=== PATIENT | male | born 1940 | race Caucasian/White ===

== ENCOUNTER 2018-01-25 02:47 | Emergency (ER) | payer MEDICARE, BC, OTHER ==
[~2018-01-25] VITALS: Ht 175.3 cm; Wt 102.5 kg
[2018-01-25] MEDS ORDERED: DULO30 PO (06:06)
[2018-01-25] MEDS ORDERED: ASPI325EC PO (06:06)
[2018-01-25] MEDS ORDERED: FINA5 PO (06:07)
[2018-01-25] MEDS ORDERED: Flovent Diskus50 MCG IH (06:08)
[2018-01-25] MEDS ORDERED: HYDCHL12.5 PO (06:11)
[2018-01-25] MEDS ORDERED: HYDHCL25 PO (06:12)
[2018-01-25] MEDS ORDERED: Omeprazole20 M1 (06:15)
[2018-01-25] MEDS ORDERED: TAMS.4ER PO (06:15)
[2018-01-25] MEDS ORDERED: LISI20 PO (06:15)
[2018-01-25] MEDS ORDERED: Percocet 5-3251 EACH PO (06:57)
== END 2018-01-25 09:09 | disposition home or self-care (01) ==
LOC: ER 02:47
DX: S82.044A Nondisplaced comminuted fracture of right patella, initial encounter for closed fracture (principal); Z88.5 Allergy status to narcotic agent; Z79.899 Other long term (current) drug therapy; Z79.82 Long term (current) use of aspirin; W10.9XXA Fall (on) (from) unspecified stairs and steps, initial encounter
CPT/HCPCS: 29505; 73502; 73562-RT; 73700; 96372; 99284-25; J1885

== ENCOUNTER 2019-04-18 16:17 | Emergency (ER) | payer OTHER, BC, MEDICARE ==
[~2019-04-18] VITALS: Ht 177.8 cm; Wt 95.2 kg
[~2019-04-18 16:17] MED LIST: ASPI325EC PO; ATOR40TA PO; DULO30 PO; DULO60 PO; FINA5 PO; Flovent Diskus50 MCG IH; Fruity C250 MG PO; HYDCHL12.5 PO; HYDCHL25 PO; HYDHCL25 PO; Motion Sickness25 M1 PO; Omeprazole20 M1; POTA10T PO; Percocet 5-3251 EACH PO; Prinivil10 MG PO; TAMS.4ER PO; Vitamin K100 MCG PO
[2019-04-18 18:30] LABS: Source, Urine Catheter
[2019-04-18 18:38] LABS: Appearance, Urine Clear (Clear); Bilirubin, Urine Neg (Neg); Blood, Urine 3+ (Neg); Color, Urine Yellow (P-Yellow); Glucose Qualitative, Urine Neg (Neg); Ketones, Urine Neg (Neg); Leukocyte Esterase, Urine Neg (Neg); Nitrite, Urine Neg (Neg); Protein, Urine 1+ (Neg); Urobilinogen, Urine NORM (Normal)
[2019-04-18 18:44] LABS: Bacteria Few /hpf; Squamous Epithelial Cells Not Seen /hpf (Few); White Blood Cells, Urine 0-2 /hpf (0-5)
[2019-04-18 18:55] LABS: Calcium, Ionized (POC) 1.21 mmol/L (1.10-1.46); Chloride (POC) 102 mmol/L (98-108); Creatinine (POC) 0.9 mg/dL (0.8-1.3); Glucose (ISTAT POC) 126 mg/dL (70-99); Hemoglobin (POC) 15.3 g/dL (13.5-17.5); Potassium (POC) 3.1 mmol/L (3.5-5.5); Sodium (POC) 142 mmol/L (135-148); Total CO2 (POC) 28 mmol/L (21-32)
[2019-04-18] MEDS ORDERED: CEPH500 PO (19:21)
== END 2019-04-18 19:52 | disposition home or self-care (01) ==
LOC: ER 16:17
PROVIDERS: Emergency Medicine
DX: N39.0 Urinary tract infection, site not specified (principal); R41.0 Disorientation, unspecified; E87.6 Hypokalemia; G47.33 Obstructive sleep apnea (adult) (pediatric); Z86.73 Personal history of transient ischemic attack (TIA), and cerebral infarction without residual deficits; Z87.891 Personal history of nicotine dependence; Z88.5 Allergy status to narcotic agent; Z79.899 Other long term (current) drug therapy
CPT/HCPCS: 36415; 51701; 80047; 81001; 85014; 99284; A9270-GY

== ENCOUNTER 2019-04-20 08:17 | Emergency (ER) | payer OTHER, BC, MEDICARE ==
[~2019-04-20] VITALS: Ht 180.3 cm; Wt 103.9 kg
[~2019-04-20 08:17] MED LIST changes: +CEPH500 PO
[2019-04-20] MEDS ORDERED: VITAMIN D350 MCG PO (08:30)
[2019-04-20] MEDS ORDERED: CENTRUM SILVER1 EAC2 PO (08:30)
[2019-04-20] MEDS ORDERED: Aspir 8181 MG PO (08:31)
[2019-04-20] MEDS ORDERED: [UNRECOGNIZED DRUG - OTHER] PO (08:33)
== END 2019-04-20 10:20 | disposition home or self-care (01) ==
LOC: ER 08:17
DX: S00.03XA Contusion of scalp, initial encounter (principal); Z86.73 Personal history of transient ischemic attack (TIA), and cerebral infarction without residual deficits; Z87.891 Personal history of nicotine dependence; Z88.5 Allergy status to narcotic agent; Z79.899 Other long term (current) drug therapy; Z79.82 Long term (current) use of aspirin; W01.10XA Fall on same level from slipping, tripping and stumbling with subsequent striking against unspecified object, initial encounter
CPT/HCPCS: 99283

== ENCOUNTER 2019-04-25 20:52 | Emergency (ER) | payer BC, OTHER, MEDICARE ==
[~2019-04-25] VITALS: Ht 180.3 cm; Wt 103.9 kg
[~2019-04-25 20:52] MED LIST changes: +Aspir 8181 MG PO; +CENTRUM SILVER1 EAC2 PO; +Cymbalta20 MG PO; -DULO60 PO; -HYDCHL25 PO; +LISI20 PO; -Prinivil10 MG PO; +VITAMIN D350 MCG PO; +[UNRECOGNIZED DRUG - OTHER] PO
== END 2019-04-25 23:08 | disposition home or self-care (01) ==
LOC: ER 20:52
DX: S20.211A Contusion of right front wall of thorax, initial encounter (principal); S30.1XXA Contusion of abdominal wall, initial encounter; Z86.73 Personal history of transient ischemic attack (TIA), and cerebral infarction without residual deficits; Z88.5 Allergy status to narcotic agent; Z79.82 Long term (current) use of aspirin; Z79.899 Other long term (current) drug therapy; W18.39XA Other fall on same level, initial encounter
CPT/HCPCS: 71046; 99284-25

== ENCOUNTER 2019-05-05 14:11 | Emergency (ER) | payer OTHER, MEDICARE, BC ==
[~2019-05-05] VITALS: Ht 172.7 cm; Wt 99.8 kg
[~2019-05-05 14:11] MED LIST changes: -Cymbalta20 MG PO; +DULO60 PO; +HYDCHL25 PO; -LISI20 PO; +Prinivil10 MG PO
[2019-05-05 14:49] LABS: BASOPHILS ABSOLUTE AUTO 0.03 K/mm3 (0.00-0.23); BASOPHILS PERCENT AUTO 0 % (0-2); EOSINOPHILS ABSOLUTE AUTO 0.17 K/mm3 (0.00-0.68); EOSINOPHILS PERCENT AUTO 2 % (0-6); Hematocrit 43.9 % (37.0-53.0); Hemoglobin 15.5 g/dL (13.5-17.5); IMMATURE GRAN ABSOLUTE AUTO 0.03 K/mm3 (0.00-0.10); IMMATURE GRAN PERCENT AUTO 0 % (0-1); LYMPHOCYTES ABSOLUTE AUTO 2.16 K/mm3 (0.84-5.20); LYMPHOCYTES PERCENT AUTO 19 % (21-46); MONOCYTES ABSOLUTE AUTO 0.93 K/mm3 (0.16-1.47); MONOCYTES PERCENT AUTO 8 % (4-13); Mean Corpuscular HGB 34.2 pg (26.0-34.0); Mean Corpuscular HGB Conc 35.3 g/dL (31.5-36.5); Mean Corpuscular Volume 97 fL (80-100); Mean Platelet Volume 9.3 fL (9.1-12.4); NEUTROPHILS ABSOLUTE AUTO 7.85 K/mm3 (1.96-9.15); NEUTROPHILS PERCENT AUTO 70 % (41-73); Platelet Count 172 K/mm3 (150-400); RDW Coefficient Variation 12.4 % (11.7-14.2); RDW Standard Deviation 44.2 fL (35.1-46.3); Red Blood Cell Count 4.53 M/mm3 (4.30-5.90); White Blood Cell Count 11.17 K/mm3 (4.00-11.30)
[2019-05-05 14:58] LABS: Anion Gap 4 mmol/L (6-16); Blood Urea Nitrogen 21 mg/dL (8-24); Bun/Creatinine Ratio 25.7 (12.0-20.0); CO2, Blood 28 mmol/L (21-32); Calcium, Blood 8.4 mg/dL (8.5-10.1); Chloride, Blood 108 mmol/L (98-108); Creatinine, Blood 0.82 mg/dL (0.60-1.20); Glomerular Filtration Rate >60 (60-); Glucose, Blood 110 mg/dL (70-99); Potassium, Blood 3.6 mmol/L (3.5-5.5); Sodium, Blood 140 mmol/L (136-145)
[2019-05-05 16:03] LABS: Source, Urine Clean Catch
[2019-05-05 16:19] LABS: Bilirubin, Urine Neg (Neg); Blood, Urine Neg (Neg); Glucose Qualitative, Urine Neg (Neg); Ketones, Urine Neg (Neg); Leukocyte Esterase, Urine Neg (Neg); Nitrite, Urine Neg (Neg); Protein, Urine 1+ (Neg); Specific Gravity, Urine 1.015 (1.003-1.022); Urobilinogen, Urine NORM (Normal)
[2019-05-05 16:37] LABS: Appearance, Urine Clear (Clear); Color, Urine Yellow (P-Yellow)
[2019-05-06] MEDS ORDERED: PROSTATE COMPLETE PO (13:28)
== END 2019-05-05 17:42 | disposition home or self-care (01) ==
LOC: ER 14:11
PROVIDERS: Emergency Medicine
DX: F03.90 Unspecified dementia, unspecified severity, without behavioral disturbance, psychotic disturbance, mood disturbance, and anxiety (principal); R53.1 Weakness; G47.33 Obstructive sleep apnea (adult) (pediatric); Z88.5 Allergy status to narcotic agent; Z79.899 Other long term (current) drug therapy; Z79.82 Long term (current) use of aspirin; Z86.73 Personal history of transient ischemic attack (TIA), and cerebral infarction without residual deficits; Z99.89 Dependence on other enabling machines and devices; Z87.891 Personal history of nicotine dependence
CPT/HCPCS: 70450; 71045; 80048; 85025; 93005; 93010; 96360; 96361; 99285-25; J7030

== ENCOUNTER 2019-05-06 09:48 | Emergency (ER) | payer OTHER, MEDICARE, BC ==
[~2019-05-06] VITALS: Ht 180.3 cm; Wt 103.4 kg
[2019-05-06 10:23] LABS: BASOPHILS ABSOLUTE AUTO 0.04 K/mm3 (0.00-0.23); BASOPHILS PERCENT AUTO 0 % (0-2); EOSINOPHILS ABSOLUTE AUTO 0.18 K/mm3 (0.00-0.68); EOSINOPHILS PERCENT AUTO 2 % (0-6); Hematocrit 47.9 % (37.0-53.0); Hemoglobin 16.7 g/dL (13.5-17.5); IMMATURE GRAN ABSOLUTE AUTO 0.02 K/mm3 (0.00-0.10); IMMATURE GRAN PERCENT AUTO 0 % (0-1); LYMPHOCYTES ABSOLUTE AUTO 2.51 K/mm3 (0.84-5.20); LYMPHOCYTES PERCENT AUTO 27 % (21-46); MONOCYTES ABSOLUTE AUTO 0.57 K/mm3 (0.16-1.47); MONOCYTES PERCENT AUTO 6 % (4-13); Mean Corpuscular HGB 33.8 pg (26.0-34.0); Mean Corpuscular HGB Conc 34.9 g/dL (31.5-36.5); Mean Corpuscular Volume 97 fL (80-100); Mean Platelet Volume 9.2 fL (9.1-12.4); NEUTROPHILS ABSOLUTE AUTO 6.07 K/mm3 (1.96-9.15); NEUTROPHILS PERCENT AUTO 65 % (41-73); Platelet Count 159 K/mm3 (150-400); RDW Coefficient Variation 12.6 % (11.7-14.2); RDW Standard Deviation 45.1 fL (35.1-46.3); Red Blood Cell Count 4.94 M/mm3 (4.30-5.90); White Blood Cell Count 9.39 K/mm3 (4.00-11.30)
[2019-05-06 10:38] LABS: Alanine Aminotransfer (ALT/SGP 34 U/L (12-78); Albumin/Globulin Ratio 0.9 (0.8-1.8); Alk Phos 108 U/L (50-136); Anion Gap 7 mmol/L (6-16); Aspartate Aminotrans (AST/SGOT 25 U/L (12-37); Bilirubin, Total 0.9 mg/dL (0.1-1.0); Blood Urea Nitrogen 17 mg/dL (8-24); Bun/Creatinine Ratio 22.4 (12.0-20.0); CO2, Blood 27 mmol/L (21-32); Calcium, Blood 9.1 mg/dL (8.5-10.1); Chloride, Blood 107 mmol/L (98-108); Creatinine, Blood 0.76 mg/dL (0.60-1.20); Globulin, Blood 4.3 g/dL (2.2-4.0); Glomerular Filtration Rate >60 (60-); Glucose, Blood 108 mg/dL (70-99); Potassium, Blood 3.6 mmol/L (3.5-5.5); Sodium, Blood 141 mmol/L (136-145); Total Protein, Blood 8.3 g/dL (6.4-8.2)
[2019-05-06 13:03] LABS: Source, Urine Clean Catch
[2019-05-06 13:12] LABS: Bilirubin, Urine Neg (Neg); Blood, Urine 1+ (Neg); Glucose Qualitative, Urine Neg (Neg); Ketones, Urine Neg (Neg); Leukocyte Esterase, Urine Neg (Neg); Nitrite, Urine Neg (Neg); Protein, Urine Neg (Neg); Specific Gravity, Urine 1.015 (1.003-1.022); Urobilinogen, Urine NORM (Normal)
[2019-05-06] MEDS ORDERED: PROSTATE COMPLETE PO (13:28)
[2019-05-06 13:30] LABS: Appearance, Urine Clear (Clear); Color, Urine Yellow (P-Yellow)
[2019-05-06 13:31] LABS: Amorphous Light (0-Heavy); Bacteria Few /hpf; Red Blood Cells, Urine 0-2 /hpf (0-2); Squamous Epithelial Cells Rare /hpf (Few); White Blood Cells, Urine 0-2 /hpf (0-5)
== END 2019-05-06 15:20 | disposition home or self-care (01) ==
LOC: ER 09:48
PROVIDERS: Emergency Medicine
DX: S09.90XA Unspecified injury of head, initial encounter (principal); F03.90 Unspecified dementia, unspecified severity, without behavioral disturbance, psychotic disturbance, mood disturbance, and anxiety; S60.812A Abrasion of left wrist, initial encounter; W18.30XA Fall on same level, unspecified, initial encounter; Z79.899 Other long term (current) drug therapy
CPT/HCPCS: 36415; 70450; 71046; 73110; 80053; 81001; 84484; 85025; 93005; 93010; 99285-25

== ENCOUNTER 2019-07-04 22:39 | Emergency (ER) | payer MEDICARE, OTHER, BC ==
[~2019-07-04] VITALS: Ht 177.8 cm; Wt 101.2 kg
[~2019-07-04 22:39] MED LIST changes: -HYDCHL25 PO; +LISI20 PO; +MICROZIDE12.5 M2 PO; +PROSTATE COMPLETE PO; -Prinivil10 MG PO
[2019-07-04 23:16] LABS: BASOPHILS ABSOLUTE AUTO 0.05 K/mm3 (0.00-0.23); BASOPHILS PERCENT AUTO 1 % (0-2); EOSINOPHILS PERCENT AUTO 4 % (0-6); Hematocrit 43.4 % (37.0-53.0); Hemoglobin 14.9 g/dL (13.5-17.5); IMMATURE GRAN ABSOLUTE AUTO 0.02 K/mm3 (0.00-0.10); IMMATURE GRAN PERCENT AUTO 0 % (0-1); LYMPHOCYTES PERCENT AUTO 32 % (21-46); MONOCYTES ABSOLUTE AUTO 0.77 K/mm3 (0.16-1.47); MONOCYTES PERCENT AUTO 9 % (4-13); Mean Corpuscular HGB 34.2 pg (26.0-34.0); Mean Corpuscular HGB Conc 34.3 g/dL (31.5-36.5); Mean Corpuscular Volume 100 fL (80-100); Mean Platelet Volume 9.3 fL (9.1-12.4); NEUTROPHILS ABSOLUTE AUTO 4.49 K/mm3 (1.96-9.15); NEUTROPHILS PERCENT AUTO 54 % (41-73); Platelet Count 144 K/mm3 (150-400); RDW Coefficient Variation 12.2 % (11.7-14.2); RDW Standard Deviation 44.5 fL (35.1-46.3); Red Blood Cell Count 4.36 M/mm3 (4.30-5.90); White Blood Cell Count 8.33 K/mm3 (4.00-11.30)
[2019-07-04 23:37] LABS: Alanine Aminotransfer (ALT/SGP 30 U/L (12-78); Albumin, Blood 3.3 g/dL (3.4-5.0); Albumin/Globulin Ratio 0.9 (0.8-1.8); Alk Phos 99 U/L (50-136); Anion Gap 7 mmol/L (6-16); Aspartate Aminotrans (AST/SGOT 27 U/L (12-37); Bilirubin, Total 0.5 mg/dL (0.1-1.0); Blood Urea Nitrogen 15 mg/dL (8-24); Bun/Creatinine Ratio 18.4 (12.0-20.0); CO2, Blood 24 mmol/L (21-32); Calcium, Blood 8.8 mg/dL (8.5-10.1); Chloride, Blood 108 mmol/L (98-108); Creatinine, Blood 0.82 mg/dL (0.60-1.20); Globulin, Blood 3.7 g/dL (2.2-4.0); Glomerular Filtration Rate >60 (60-); Glucose, Blood 100 mg/dL (70-99); Potassium, Blood 4.2 mmol/L (3.5-5.5); Sodium, Blood 139 mmol/L (136-145); Troponin I <0.015 ng/mL (0.000-0.040)
[2019-07-05 00:37] LABS: International Normalized Ratio 0.99; Prothrombin Time Results 10.6 Sec (9.7-11.5)
[2019-07-06] MEDS ORDERED: OMEP20ER PO (19:17)
[2019-07-06] MEDS ORDERED: MELATONIN 5 MG1 EACH PO (19:20)
[2019-07-08] MEDS ORDERED: ACET325 (13:31)
== END 2019-07-05 00:50 | disposition short-term general hospital (02) ==
LOC: ER 22:39
PROVIDERS: Emergency Medicine
DX: S06.5X9A Traumatic subdural hemorrhage with loss of consciousness of unspecified duration, initial encounter (principal); S01.01XA Laceration without foreign body of scalp, initial encounter; F03.90 Unspecified dementia, unspecified severity, without behavioral disturbance, psychotic disturbance, mood disturbance, and anxiety; Z86.73 Personal history of transient ischemic attack (TIA), and cerebral infarction without residual deficits; Z88.5 Allergy status to narcotic agent; Z79.899 Other long term (current) drug therapy; Z79.82 Long term (current) use of aspirin; W18.30XA Fall on same level, unspecified, initial encounter; Y92.009 Unspecified place in unspecified non-institutional (private) residence as the place of occurrence of the external cause
CPT/HCPCS: 70450; 72125; 80053; 84484; 85025; 85610; 85730; 93005; 93010; 99285-25; L0160

== ENCOUNTER 2019-07-06 19:13 | Inpatient (IN) | payer MEDICARE, BC, OTHER ==
[~2019-07-06] VITALS: Ht 177.8 cm; Wt 97.6 kg
[2019-07-06] MEDS ORDERED: OMEP20ER PO (19:17)
[2019-07-06] MEDS ORDERED: MELATONIN 5 MG1 EACH PO (19:20)
[2019-07-06 20:44] LABS: BASOPHILS ABSOLUTE AUTO 0.04 K/mm3 (0.00-0.23); BASOPHILS PERCENT AUTO 0 % (0-2); EOSINOPHILS ABSOLUTE AUTO 0.12 K/mm3 (0.00-0.68); EOSINOPHILS PERCENT AUTO 1 % (0-6); Hematocrit 47.8 % (37.0-53.0); Hemoglobin 16.4 g/dL (13.5-17.5); IMMATURE GRAN ABSOLUTE AUTO 0.03 K/mm3 (0.00-0.10); IMMATURE GRAN PERCENT AUTO 0 % (0-1); LYMPHOCYTES ABSOLUTE AUTO 1.78 K/mm3 (0.84-5.20); LYMPHOCYTES PERCENT AUTO 15 % (21-46); MONOCYTES ABSOLUTE AUTO 0.82 K/mm3 (0.16-1.47); MONOCYTES PERCENT AUTO 7 % (4-13); Mean Corpuscular HGB 33.7 pg (26.0-34.0); Mean Corpuscular HGB Conc 34.3 g/dL (31.5-36.5); Mean Corpuscular Volume 98 fL (80-100); Mean Platelet Volume 9.3 fL (9.1-12.4); NEUTROPHILS ABSOLUTE AUTO 8.85 K/mm3 (1.96-9.15); NEUTROPHILS PERCENT AUTO 76 % (41-73); Platelet Count 166 K/mm3 (150-400); RDW Coefficient Variation 12.2 % (11.7-14.2); RDW Standard Deviation 44.7 fL (35.1-46.3); Red Blood Cell Count 4.86 M/mm3 (4.30-5.90); White Blood Cell Count 11.64 K/mm3 (4.00-11.30)
[2019-07-06 21:02] LABS: International Normalized Ratio 1.02; Prothrombin Time Results 10.9 Sec (9.7-11.5)
[2019-07-06 21:03] LABS: Alanine Aminotransfer (ALT/SGP 37 U/L (12-78); Albumin, Blood 3.9 g/dL (3.4-5.0); Albumin/Globulin Ratio 0.9 (0.8-1.8); Alk Phos 121 U/L (50-136); Anion Gap 7 mmol/L (6-16); Aspartate Aminotrans (AST/SGOT 23 U/L (12-37); Bilirubin, Total 0.7 mg/dL (0.1-1.0); Blood Urea Nitrogen 16 mg/dL (8-24); Bun/Creatinine Ratio 18.9 (12.0-20.0); CO2, Blood 28 mmol/L (21-32); Calcium, Blood 9.1 mg/dL (8.5-10.1); Chloride, Blood 104 mmol/L (98-108); Creatinine, Blood 0.85 mg/dL (0.60-1.20); Ethanol (Alcohol), Blood, Med <3 mg/dL; Globulin, Blood 4.3 g/dL (2.2-4.0); Glomerular Filtration Rate >60 (60-); Glucose, Blood 112 mg/dL (70-99); Potassium, Blood 3.8 mmol/L (3.5-5.5); Sodium, Blood 139 mmol/L (136-145); Total Protein, Blood 8.2 g/dL (6.4-8.2)
[2019-07-06 21:57] LABS: Source, Urine Clean Catch
[2019-07-06 22:01] LABS: Appearance, Urine Hazy (Clear); Bilirubin, Urine Neg (Neg); Blood, Urine 3+ (Neg); Color, Urine Yellow (P-Yellow); Glucose Qualitative, Urine Neg (Neg); Ketones, Urine Neg (Neg); Leukocyte Esterase, Urine Neg (Neg); Nitrite, Urine Neg (Neg); Protein, Urine 2+ (Neg); Specific Gravity, Urine 1.015 (1.003-1.022); Urobilinogen, Urine NORM (Normal)
[2019-07-06 22:13] LABS: U Amphetamine Screen Not Detected; U Barbituate Screen Not Detected; U Benzodiazapine Screen Not Detected; U Buprenorphine Screen Not Detected; U Cannabinoids Screen DETECTED; U Cocaine Screen Not Detected; U Methadone Screen Not Detected; U Methamphetamine Screen Not Detected; U Opiates Screen Not Detected; U Oxycodone Screen Not Detected; U Propoxyphene Screen Not Detected
[2019-07-06 22:17] LABS: White Blood Cells, Urine 0-2 /hpf (0-5)
[2019-07-06 22:18] LABS: Squamous Epithelial Cells Rare /hpf (Few)
[2019-07-06 22:19] LABS: Amorphous Light (0-Heavy); Bacteria Few /hpf
--- NOTE | 2019-07-07 02:22 | NUR ---
PT ADMITTED FROM ED AT APPROX 0030 FOR C/O DIZZINESS, BLURRED VISION AND CONFUSION AFTER RECENT SUBDURAL HEMORRHAGE WHICH WAS TREATED AT [facility]. PT WITH ALTERED MENTATION AT THIS TIME. BP ELEVATED AND PT C/O HEADACHE. ALL OTHER VS WNL. SLIGHT LEFT SIDED FACIAL DROOP. PT COOPERATIVE WITH CARE AND TELLING JOKES TO STAFF. NONSENSICAL AT TIMES. INCONTINENT WITH ATTENDS ON. UPON REPORT, PT LIVES AT HOME WITH AND IS AMBULATORY AT BASELINE. BED ALARM ON FOR SAFETY. WILL GIVE ORAL HYDRALAZINE PER ORDERS.
--- NOTE | 2019-07-07 06:00 | NUR ---
PT HAS BEEN HYPERTENSIVE THROUGHOUT SHIFT AND CONTINUES TO C/O HEADACHE. PT GIVEN 10MG PO HYDRALAZINE AND 10MG IV HYDRALAZINE WHICH WAS NOT EFFECTIVE. HOSPITALIST NOTIFIED AND NEW ORDER FOR STAT CT SCAN, IV LEBETALOL AND TELEMETRY. PT ALSO FREQUENTLY ATTEMPTING TO GET OUT OF BED AND IS UNSTEADY ON FEET WITH HX OF MULTIPLE FALLS. HOSPITALIST IS OK WITH HAVING RESTRAINTS PUT ON IF NEEDED.
--- NOTE | 2019-07-07 06:12 | NUR ---
PT GOING IN FOR CT SCAN OF HEAD
--- NOTE | 2019-07-07 07:18 | NUR ---
AFTER IV LEBETALOL, PT BP IS NOW 141/80. PT STILL HOLLERING OUT AND IS BECOMING IRRITABLE WITH STAFF. BED ALARM ON.
--- NOTE | 2019-07-07 07:30 | NUR ---
pt calling out confused removed his attends pt reporting severe h/a and blurred vision turned off lights pt given iv blood pressure meds blood pressure is improved
[2019-07-07 08:29] LABS: BASOPHILS ABSOLUTE AUTO 0.02 K/mm3 (0.00-0.23); BASOPHILS PERCENT AUTO 0 % (0-2); EOSINOPHILS ABSOLUTE AUTO 0.04 K/mm3 (0.00-0.68); EOSINOPHILS PERCENT AUTO 0 % (0-6); Hematocrit 45.4 % (37.0-53.0); IMMATURE GRAN ABSOLUTE AUTO 0.03 K/mm3 (0.00-0.10); IMMATURE GRAN PERCENT AUTO 0 % (0-1); LYMPHOCYTES ABSOLUTE AUTO 1.46 K/mm3 (0.84-5.20); LYMPHOCYTES PERCENT AUTO 12 % (21-46); MONOCYTES ABSOLUTE AUTO 0.87 K/mm3 (0.16-1.47); MONOCYTES PERCENT AUTO 7 % (4-13); Mean Corpuscular HGB 33.9 pg (26.0-34.0); Mean Corpuscular HGB Conc 35.2 g/dL (31.5-36.5); Mean Corpuscular Volume 96 fL (80-100); Mean Platelet Volume 9.2 fL (9.1-12.4); NEUTROPHILS ABSOLUTE AUTO 9.38 K/mm3 (1.96-9.15); NEUTROPHILS PERCENT AUTO 79 % (41-73); Platelet Count 163 K/mm3 (150-400); RDW Coefficient Variation 11.9 % (11.7-14.2); Red Blood Cell Count 4.72 M/mm3 (4.30-5.90)
--- NOTE | 2019-07-07 08:30 | NUR ---
pt stated he had some nausea will hold breakfast
[2019-07-07 08:48] LABS: Anion Gap 4 mmol/L (6-16); Blood Urea Nitrogen 15 mg/dL (8-24); Bun/Creatinine Ratio 24.8 (12.0-20.0); CO2, Blood 27 mmol/L (21-32); Calcium, Blood 8.8 mg/dL (8.5-10.1); Chloride, Blood 105 mmol/L (98-108); Creatinine, Blood 0.61 mg/dL (0.60-1.20); Glomerular Filtration Rate >60 (60-); Glucose, Blood 126 mg/dL (70-99); Potassium, Blood 3.2 mmol/L (3.5-5.5); Sodium, Blood 136 mmol/L (136-145)
--- NOTE | 2019-07-07 08:57 | NUR ---
pt had med emesis zofran given pt stated throwing up did help a little for his nausea pt had nausea earlier held the tray this am and his po meds cleaned pt up changed linen and gave a bath will notify dr sky pt's b/p is improved but still has severe h/a and blurred vision keeping off the lights and the hob at 30 degree
--- NOTE | 2019-07-07 10:25 | NUR ---
dr sky called pt's at bedside discussed pt's symptoms and what we have done so far dr to come in 20 min
--- NOTE | 2019-07-07 12:28 | NUR ---
placed cpap called rt for cont biox
--- NOTE | 2019-07-07 13:18 | NUR ---
DR TAYLOR CALLED UNABLE TO GIVE PT ANY WATER STILL HAVING NAUSEA PT REF PO MEDS REPORT CALLED TO MED PT TO GO TO [facility]ALL R[facility]K
--- NOTE | 2019-07-07 13:28 | NUR ---
PT TRANSFERING TO ROOM 347 NOTIFIED PT'S
--- NOTE | 2019-07-07 13:45 | NUR ---
PATIENT TRANSFERRED FROM 226 TO ROOM 347. PATIENT IS SLEEPING AT THIS TIME WITH CPAP ON. REPORT RECEIVED THAT PATIENT HAS HAD INTERMITTENT NAUSEA AND IS UNABLE TO TOLERATE FOOD OR PO MEDS. VSS TODAY. ORDERS TO START NS AT 100ML/HR. WILL ASSESS FURTHER WHEN PATIENT WAKES.
--- NOTE | 2019-07-07 23:43 | NUR ---
Called TOOL GRINDING MACHINE OPERATOR Kelsie to report run of vtac and she rx potassium and bedtime baseline dose melatonin. also reglan and changed zofran to Q 4hrs prn versus Q 6 hrs. PT is very irritated and he had recent subdural hematoma , slight lt facial droop. hx of old CVA. PT speaks in full sentances alert to self situation. verbally abusive at times. Haldol 2 mg IV was given at beggining of shift for aggitation. Hypertensive verified parameters for use of apresoline will administer. PT has removed tele moniter leads multiple times and refusing pulse bioxx. Will administer melatonin to promote rest.
--- NOTE | 2019-07-08 01:57 | NUR ---
pt HAS PACEMAKER AND APACED AT 80 LAST TELE REPORT. PT TOOK ORAL POTASSIUM 40 MEQ AND HAD REGLAN FOR NAUSEA. MELATONIN GIVEN AND PT RESTING QUIETY WITH CPAP RUNNING. BP IMPROVED WITH 20 MG IV APRESOLINE 126/75 PULSE 80.
--- NOTE | 2019-07-08 02:41 | NUR ---
PT had been sleeping soundly with own cpap inplace over nose. RN sitting outside PT's room and heard him vomit, appeared to be aspirating emisis. Removed cpap suction oral and raised head of bed more and gave IV zofran. Lungs were clear prior to emisis now rhonchi present, continues on bioxx with nasal cpap in place with sats 95% room air cpap. will notify MD and continue to monitor.
--- NOTE | 2019-07-08 03:17 | NUR ---
CPAP nasal removed room air sat 95% and pt maintains oral suction nearby after another emisis where PT coughed out several large talley mucus plug appearing sputum. Called DR Burnett about observed emisis appearing to aspirate. Stat Portable and abd XRay order obtained. PT had large soft brown BM on bedpan with assist. Await CXR
[2019-07-08 05:21] LABS: BASOPHILS ABSOLUTE AUTO 0.02 K/mm3 (0.00-0.23); BASOPHILS PERCENT AUTO 0 % (0-2); EOSINOPHILS ABSOLUTE AUTO 0.02 K/mm3 (0.00-0.68); EOSINOPHILS PERCENT AUTO 0 % (0-6); Hematocrit 47.2 % (37.0-53.0); Hemoglobin 16.2 g/dL (13.5-17.5); IMMATURE GRAN ABSOLUTE AUTO 0.05 K/mm3 (0.00-0.10); IMMATURE GRAN PERCENT AUTO 0 % (0-1); LYMPHOCYTES ABSOLUTE AUTO 0.84 K/mm3 (0.84-5.20); LYMPHOCYTES PERCENT AUTO 6 % (21-46); MONOCYTES ABSOLUTE AUTO 1.02 K/mm3 (0.16-1.47); MONOCYTES PERCENT AUTO 8 % (4-13); Mean Corpuscular HGB 33.9 pg (26.0-34.0); Mean Corpuscular HGB Conc 34.3 g/dL (31.5-36.5); Mean Platelet Volume 9.3 fL (9.1-12.4); NEUTROPHILS ABSOLUTE AUTO 11.35 K/mm3 (1.96-9.15); NEUTROPHILS PERCENT AUTO 85 % (41-73); Platelet Count 170 K/mm3 (150-400); RDW Coefficient Variation 12.4 % (11.7-14.2); RDW Standard Deviation 45.1 fL (35.1-46.3); Red Blood Cell Count 4.78 M/mm3 (4.30-5.90)
[2019-07-08 05:26] LABS: Mean Corpuscular Volume 99 fL (80-100)
[2019-07-08 05:46] LABS: Albumin, Blood 3.6 g/dL (3.4-5.0); Albumin/Globulin Ratio 0.9 (0.8-1.8); Bilirubin, Total 1.1 mg/dL (0.1-1.0); Calcium, Blood 8.4 mg/dL (8.5-10.1); Creatinine, Blood 1.28 mg/dL (0.60-1.20); Globulin, Blood 3.9 g/dL (2.2-4.0); Potassium, Blood 4.1 mmol/L (3.5-5.5); Total Protein, Blood 7.5 g/dL (6.4-8.2)
[2019-07-08 06:17] LABS: Thyroid Stimulating Hormone 1.08 uIU/mL (0.360-4.800)
--- NOTE | 2019-07-08 06:28 | NUR ---
PT continues on room air bioxx and had portable chast x ray and abd xray and head ct this AM. Less aggitated no oral intake since emisis, not currently using nasal cpap due to nausea and vomiting. PT has head ct after subdural hematoma and it was diminishing per imaging. PAced cardiac rhythem or sinus with no further vtac. ON remote camera monitoring due to high fall risk. PT alternates between deep sleep and irritation. Able to communicate but does not use call hanks. When he is awake he usually expresses dissatisfaction with staff calling them incompetent. No visitors present this shift. PT has CHENG and 2 l NC applied this AM due to pauses in breathing. Unable to use CPAP nasal due to N & V.
[2019-07-08] MEDS ORDERED: ACET325 PO (13:31)
[2019-07-08] MEDS ORDERED: VITAMIN D350 MCG PO (13:33)
[2019-07-08] MEDS ORDERED: CYAN500 PO (13:35)
[2019-07-08] MEDS ORDERED: Clotrimazole15 GM TOP (13:35)
[2019-07-08] MEDS ORDERED: ARTIFICIAL TEA1 EACH BOTHEYES (13:37)
[2019-07-08] MEDS ORDERED: DOCU100 PO (13:37)
[2019-07-08] MEDS ORDERED: Flonase 0.05% N16 GM (13:39)
[2019-07-08] MEDS ORDERED: CORTISONE60 GM TOP (13:42)
[2019-07-08] MEDS ORDERED: MAGNESIUM OXID500 MG PO (13:45)
[2019-07-08] MEDS ORDERED: VITAMIN K-1500 MCG PO (13:48)
[2019-07-08] MEDS ORDERED: Saw Palmetto160 MG PO (13:49)
--- NOTE | 2019-07-08 14:12 | NUR ---
Pt. is in bed and is doing much better offerwd prayeres
[2019-07-08] MEDS ORDERED: PHENY100ER PO (16:49)
--- NOTE | 2019-07-08 18:45 | NUR ---
PATIENT MORE ORIENTED TODAY AND ABLE TO FOLLOW COMMANDS. PATIENT CONTINUES WITH INTERMIITENT NAUSEA, BUT NO EMESIS THIS SHIFT. PATIENT ASPIRATED ON HIS VOMIT LAST NIGHT AND WBC'S AND TEMP ELEVATED THIS AM. PATIENT STARTED ON ZOSYN TO TREAT. 2LO2 VIA NC TO MAINTAIN SATS, CONT PULSE OX AT BEDSIDE. VSS, HYDRALAZINE PRN FOR HTN. PATIENT REPORTS L KNEE PAIN, CONTROLLED WITH INTERMITTENT ICE PACKS. FALL PRECAUTIONS IN PLACE PER UNIT PROTOCOL. PATIENT UP WITH FWW, GB AND 2 ASSIST.
--- NOTE | 2019-07-08 19:37 | NUR ---
PT PREVIOUSLY REFUSED SCD'S WHEN CONFUSED AND AGITATED. OFFERED THEM AGAIN AND HE SAID HE WAS OKAY WITH WEARING THEM. APPLIED SCD'S.
--- NOTE | 2019-07-08 19:49 | NUR ---
1914 REPORT RECEIVED FROM RAYRAY SILVA; RESTING COMFORTABLY IN BED; CHEERFUL.
--- NOTE | 2019-07-09 04:08 | NUR ---
SHIFT SUMMARY: 79 Y/O MALE HAD RESTLESS SHIFT AT TIMES WITH PATIENT GIVEN MELATONIN 10MG PO AND REDIRECTED BY NURSING STAFF NUMEROUS TIMES; ALERT AND ORIENTED X 2, VOIDED VIA URINAL HELD IN PLACE BY STAFF (ATTENDS DRY); TELEMETRY REFLECTS NSR WITH BBB PER CHANDRA MYERS--HYDROGEN POWER PLANT ENGINEER; PT TOOK ALL PILLS WHOLE IN APPLESAUCE; BED ALARM APPLIED, BED LOW POSITION WITH CALL LIGHT AT SIDE.
[2019-07-09 05:13] LABS: Hematocrit 40.1 % (37.0-53.0); Hemoglobin 13.5 g/dL (13.5-17.5); Mean Corpuscular HGB 33.7 pg (26.0-34.0); Mean Corpuscular HGB Conc 33.7 g/dL (31.5-36.5); Mean Corpuscular Volume 100 fL (80-100); Mean Platelet Volume 9.3 fL (9.1-12.4); Platelet Count 129 K/mm3 (150-400); RDW Coefficient Variation 12.3 % (11.7-14.2); RDW Standard Deviation 45.4 fL (35.1-46.3); Red Blood Cell Count 4.01 M/mm3 (4.30-5.90)
[2019-07-09 05:33] LABS: Anion Gap 6 mmol/L (6-16); Blood Urea Nitrogen 29 mg/dL (8-24); Bun/Creatinine Ratio 29.9 (12.0-20.0); CO2, Blood 23 mmol/L (21-32); Calcium, Blood 8.2 mg/dL (8.5-10.1); Chloride, Blood 111 mmol/L (98-108); Creatinine, Blood 0.97 mg/dL (0.60-1.20); Glomerular Filtration Rate >60 (60-); Glucose, Blood 101 mg/dL (70-99); Potassium, Blood 3.5 mmol/L (3.5-5.5); Sodium, Blood 140 mmol/L (136-145)
[2019-07-09] MEDS ORDERED: AMOCLA500 PO (16:49)
[2019-07-09] MEDS ORDERED: Vsl#3 Capsule1 EACH PO (16:49)
--- NOTE | 2019-07-09 18:37 | NUR ---
DISCHARGE NOTE- PT WAS GIVEN VERBAL AND WRITTEN DISCHARGE INSTRUCTIONS, SPOUSE WAS PRESENT AND ASKING APPROPRIATE QUESTIONS. SPOUSE STATED THE [facility]. PT SPOUSE REQUESTED THAT THE PT DILANTIN BE CALLED IN TO [facility] JUST FOR 2 DOSES TO GET HER [facility]IL [facility]. THIS WAS DONE PER HER REQUEST OK WITH DR EDMONDSON. PT NORMALLY TAKES OMEPROAZOLE HOWEVER DR EDMONDSON TOLD SPOUSE TO HOLD OFF UNTIL THE PT HAS COMPLETED THE 6 DAYS OF DILANTIN. PT SPOUSE HAD NO FURTHER QUESTIONS AT THE TIME OF DISCHARGE. IV AND TELE DC'D AT THE TIME OF DISCHARGE.
== END 2019-07-09 18:10 | disposition home health service (06) | DRG 82 ==
LOC: ER 19:13 → SURS 07-07 00:02 → MEDS 07-07 13:41
PROVIDERS: Emergency Medicine; Internal Medicine; ADMIT Internal Medicine
DX: S06.5X9A Traumatic subdural hemorrhage with loss of consciousness of unspecified duration, initial encounter (principal); A41.9 Sepsis, unspecified organism; G93.41 Metabolic encephalopathy; J69.0 Pneumonitis due to inhalation of food and vomit; F12.10 Cannabis abuse, uncomplicated; E86.0 Dehydration; F03.90 Unspecified dementia, unspecified severity, without behavioral disturbance, psychotic disturbance, mood disturbance, and anxiety; I10 Essential (primary) hypertension; G47.33 Obstructive sleep apnea (adult) (pediatric); W19.XXXA Unspecified fall, initial encounter; Z86.73 Personal history of transient ischemic attack (TIA), and cerebral infarction without residual deficits; Z95.0 Presence of cardiac pacemaker; Z87.891 Personal history of nicotine dependence; N40.0 Benign prostatic hyperplasia without lower urinary tract symptoms; G25.81 Restless legs syndrome; R13.10 Dysphagia, unspecified
CPT/HCPCS: 36415; 51701; 70450; 71045; 74018; 80048; 80053; 81001; 82607; 82746; 82947; 84443; 85025; 85027; 85610; 85730; 87040; 92610; 93005; 93010; 94762; 96361; 96365; 96367; 96375; 96376; 97116; 97162; 99285-25; A9270-GY; G0378; G0480; J0360; J1165; J1630; J2405; J2543; J2765; J7030

== ENCOUNTER 2019-07-10 15:36 | Observation (INO) | payer MEDICARE, BC, OTHER ==
[~2019-07-10] VITALS: Ht 180.3 cm; Wt 95.8 kg
[~2019-07-10 15:36] MED LIST changes: +ACET325 PO; +AMOCLA500 PO; +ARTIFICIAL TEA1 EACH BOTHEYES; +CORTISONE60 GM TOP; +CYAN500 PO; +Clotrimazole15 GM TOP; +DOCU100 PO; +Flonase 0.05% N16 GM; +MAGNESIUM OXID500 MG PO; +MELATONIN 5 MG1 EACH PO; +OMEP20ER PO; +PHENY100ER PO; +Saw Palmetto160 MG PO; +VITAMIN K-1500 MCG PO; +Vsl#3 Capsule1 EACH PO
[2019-07-10 16:33] LABS: BASOPHILS ABSOLUTE AUTO 0.05 K/mm3 (0.00-0.23); BASOPHILS PERCENT AUTO 1 % (0-2); EOSINOPHILS ABSOLUTE AUTO 0.17 K/mm3 (0.00-0.68); EOSINOPHILS PERCENT AUTO 2 % (0-6); Hematocrit 46.2 % (37.0-53.0); Hemoglobin 16.3 g/dL (13.5-17.5); IMMATURE GRAN ABSOLUTE AUTO 0.02 K/mm3 (0.00-0.10); IMMATURE GRAN PERCENT AUTO 0 % (0-1); LYMPHOCYTES ABSOLUTE AUTO 1.92 K/mm3 (0.84-5.20); LYMPHOCYTES PERCENT AUTO 18 % (21-46); MONOCYTES PERCENT AUTO 10 % (4-13); Mean Corpuscular HGB 34.5 pg (26.0-34.0); Mean Corpuscular HGB Conc 35.3 g/dL (31.5-36.5); Mean Corpuscular Volume 98 fL (80-100); Mean Platelet Volume 9.2 fL (9.1-12.4); NEUTROPHILS ABSOLUTE AUTO 7.29 K/mm3 (1.96-9.15); NEUTROPHILS PERCENT AUTO 70 % (41-73); Platelet Count 133 K/mm3 (150-400); RDW Coefficient Variation 11.9 % (11.7-14.2); RDW Standard Deviation 43.2 fL (35.1-46.3); Red Blood Cell Count 4.72 M/mm3 (4.30-5.90); White Blood Cell Count 10.45 K/mm3 (4.00-11.30)
[2019-07-10 16:48] LABS: International Normalized Ratio 1.04; Prothrombin Time Results 11.1 Sec (9.7-11.5)
[2019-07-10 16:54] LABS: Alanine Aminotransfer (ALT/SGP 31 U/L (12-78); Albumin, Blood 3.5 g/dL (3.4-5.0); Albumin/Globulin Ratio 0.8 (0.8-1.8); Alk Phos 112 U/L (50-136); Anion Gap 6 mmol/L (6-16); Aspartate Aminotrans (AST/SGOT 34 U/L (12-37); Bilirubin, Total 0.9 mg/dL (0.1-1.0); Blood Urea Nitrogen 17 mg/dL (8-24); Bun/Creatinine Ratio 29.5 (12.0-20.0); CO2, Blood 24 mmol/L (21-32); Calcium, Blood 8.7 mg/dL (8.5-10.1); Chloride, Blood 105 mmol/L (98-108); Creatinine, Blood 0.58 mg/dL (0.60-1.20); Globulin, Blood 4.4 g/dL (2.2-4.0); Glomerular Filtration Rate >60 (60-); Glucose, Blood 99 mg/dL (70-99); Sodium, Blood 135 mmol/L (136-145); Total Protein, Blood 7.9 g/dL (6.4-8.2)
[2019-07-10 17:03] LABS: Dilantin (Phenytoin), Total 3.7 ug/mL (10.0-20.0)
[2019-07-11 03:36] LABS: Source, Urine Catheter
[2019-07-11 03:43] LABS: Bilirubin, Urine Neg (Neg); Blood, Urine 2+ (Neg); Glucose Qualitative, Urine Neg (Neg); Ketones, Urine 3+ (Neg); Leukocyte Esterase, Urine Neg (Neg); Nitrite, Urine Neg (Neg); Protein, Urine 2+ (Neg); Urobilinogen, Urine 1+ (Normal)
[2019-07-11 03:45] LABS: Appearance, Urine Clear (Clear); Color, Urine Yellow (P-Yellow)
--- NOTE | 2019-07-11 03:48 | NUR ---
NOC SHIFT SUMMARY RECIEVED REPORT FROM [facility] ED RN AND PT ARRIVED TO FLOOR AT 1935. CAME TO FLOOR WITH HIM AND LEFT SHORTLY AFTER. PT IS ORIENTED TO SELF AND FAMILY. HAS SOME REDNESS ON HIS SCROTUM ON ADMIT. HE HAD BEEN INCONTINENT. BARIER CREAM APPLIED TO AREA TO PREVENT SKIN BREAKDOWN. BROUGHT CPAP MACHINE FROM HOME AND PT IS PRESENTLY USING IT WHILE HE SLEEPS. ON CONT PULSE OX AND SATTING MID 90'S WHILE SLEEPING. HE IS GENERALLY PLEASANT AND COOPERATIVE BUT DOES NOT APPRECIATE BEING CHANGED. HAS THREATENED TO STRIKE STAFF DURING ATTENDS CHANGES. OBTAINED URINE SAMPLE AND SENT TO LAB. THIS TIME PT IS SLEEPING AND APPEARS IN NO ACUTE DISTRESS. WILL CONTINUE TO MONITOR.
[2019-07-11 03:52] LABS: Amorphous Mod (0-Heavy); Bacteria Few /hpf; Red Blood Cells, Urine 0-2 /hpf (0-2); Squamous Epithelial Cells Few /hpf (Few); White Blood Cells, Urine 0-2 /hpf (0-5)
[2019-07-11 05:31] LABS: BASOPHILS ABSOLUTE AUTO 0.05 K/mm3 (0.00-0.23); BASOPHILS PERCENT AUTO 0 % (0-2); EOSINOPHILS PERCENT AUTO 1 % (0-6); Hematocrit 48.3 % (37.0-53.0); Hemoglobin 16.8 g/dL (13.5-17.5); IMMATURE GRAN ABSOLUTE AUTO 0.06 K/mm3 (0.00-0.10); IMMATURE GRAN PERCENT AUTO 1 % (0-1); LYMPHOCYTES ABSOLUTE AUTO 1.47 K/mm3 (0.84-5.20); LYMPHOCYTES PERCENT AUTO 12 % (21-46); MONOCYTES PERCENT AUTO 10 % (4-13); Mean Corpuscular HGB 33.9 pg (26.0-34.0); Mean Corpuscular HGB Conc 34.8 g/dL (31.5-36.5); Mean Corpuscular Volume 98 fL (80-100); Mean Platelet Volume 9.1 fL (9.1-12.4); NEUTROPHILS ABSOLUTE AUTO 9.48 K/mm3 (1.96-9.15); NEUTROPHILS PERCENT AUTO 77 % (41-73); Platelet Count 151 K/mm3 (150-400); RDW Standard Deviation 43.6 fL (35.1-46.3); Red Blood Cell Count 4.95 M/mm3 (4.30-5.90); White Blood Cell Count 12.36 K/mm3 (4.00-11.30)
[2019-07-11 05:54] LABS: Anion Gap 6 mmol/L (6-16); Blood Urea Nitrogen 13 mg/dL (8-24); Bun/Creatinine Ratio 17.3 (12.0-20.0); CO2, Blood 27 mmol/L (21-32); Calcium, Blood 8.9 mg/dL (8.5-10.1); Chloride, Blood 103 mmol/L (98-108); Creatinine, Blood 0.75 mg/dL (0.60-1.20); Glomerular Filtration Rate >60 (60-); Glucose, Blood 98 mg/dL (70-99); Potassium, Blood 3.4 mmol/L (3.5-5.5); Sodium, Blood 136 mmol/L (136-145)
--- NOTE | 2019-07-11 14:53 | NUR ---
DILANTIN, AUGMENTIN, BOWEL CARE: NOTIFIED DR. LOWE OF A NUMBER OF CONCERNS BROUGHT FORTH BY THE PATIENT'S . SHE WAS UNSURE OF THE REASON FOR THE PATIENT RECEIVING DILANTIN (THE NEUROSURGEON AT [facility] RECOMMENDED THIS MEDICATION TO PREVENT SEIZURES POST SUB-DURAL HEMATOMA, PER DR. LOWE), THAT THE PATIENT WAS DISCHARGED ON AUGMENTIN FOR POTENTIAL PNEUMONIA (THE CHEST X-RAY UPON ADMIT DID NOT INDICATE PNEUMONIA, PER DR. LOWE) AND THAT THE PATIENT HAS NOT HAD A BOWEL MOVEMENT SINCE LAST FRIDAY. NEW ORDERS TO FOLLOW.
--- NOTE | 2019-07-11 19:46 | NUR ---
END OF SHIFT SUMMARY: PATIENT REPORTED 10/10 PAIN FOR MOST OF THE SHIFT, PRIMARILY IN THE LEFT SHOULDER AND A HEADACHE. MEDICATED WITH PRN TYLENOL, REPOSITIONED, AND APPLIED HEAT/COLD. PATIENT TOLERATED WELL. BY THE END OF THE SHIFT, PATIENT DENIED NEED FOR PAIN MEDICATION. PATIENT'S REPORTED THAT PATIENT HAS ADVERSE REACTIONS TO ULTRAM. RELAYED TO DR. LOWE. NEW ORDERS RECEIVED TO SCHEDULE THE TYLENOL. PATIENT AND NOTIIFIED. PATIENT'S DID NOT REQUIRE PRN HYDRALAZINE TODAY. TOLERATED MORNING BP MEDICATIONS WELL. PATIENT ENGAGED WITH PHYSICAL THERAPIST. PERFORMED ALL EXERCISES AVAILABLE WITH PT. DISCUSSED REASONS FOR DILANTIN WITH THE PATIENT'S (SEE NURSES NOTE), SHE AGREED FOR THE PATIENT TO HAVE THIS MEDICATION. NO SEIZURE ACTIVITY NOTED. NO CHANGES TO NEURO STATUS THROUGHOUT SHIFT, WITH THE EXCEPTION OF BECOMING INCREASINGLY FATIGUED. PATIENT EASY TO AWAKE, RESPONSES APPROPRIATELY, CONTINUES TO MAKE JOKES/SARCASTIC REMARKS, AND FOLLOW COMMANDS. PATIENT DID NOT DISPLAY ANY DIFFICULTIES EATING OR DRINKING TODAY. REPORTED THAT HE HAD A SWALLOW EVALUATION IN 2018 THAT REQUIRED: MEDICATIONS WHOLE WITH APPLESAUCE, NO MIXED CONSISTENCIES, SOFT BITE/BITE SIZED FOODS, AND NO STRAWS. THESE PARAMETERS WERE FOLLOWED TODAY WITHOUT SIGNS/SYMPTOMS OF DIFFICULTY SWALLOWING. EXPRESSED SOME CONCERNS ABOUT THE PATIENT'S DISCHARGE. DISCUSSED PT RECOMMENDATION FOR THE PATIENT TO DISCHARGE TO A SNF. REPORTED THAT SHE WILL BE IN TOMORROW AND ABLE TO DISCUSS OPTIONS WITH CARE MANAGEMENT.
--- NOTE | 2019-07-11 23:37 | NUR ---
SON AND DAUGHTER IN LAW VISITING DURING SHIFT CHANGE. PT CONTINUES TO COMPLAIN OF L SHOULDER PAIN, WORSE ON PALP. TREATING PER EMAR.
[2019-07-12 05:06] LABS: BASOPHILS ABSOLUTE AUTO 0.02 K/mm3 (0.00-0.23); BASOPHILS PERCENT AUTO 0 % (0-2); EOSINOPHILS ABSOLUTE AUTO 0.04 K/mm3 (0.00-0.68); EOSINOPHILS PERCENT AUTO 0 % (0-6); Hemoglobin 14.6 g/dL (13.5-17.5); IMMATURE GRAN ABSOLUTE AUTO 0.03 K/mm3 (0.00-0.10); IMMATURE GRAN PERCENT AUTO 0 % (0-1); LYMPHOCYTES ABSOLUTE AUTO 1.38 K/mm3 (0.84-5.20); LYMPHOCYTES PERCENT AUTO 13 % (21-46); MONOCYTES ABSOLUTE AUTO 1.25 K/mm3 (0.16-1.47); MONOCYTES PERCENT AUTO 12 % (4-13); Mean Corpuscular HGB Conc 34.8 g/dL (31.5-36.5); Mean Corpuscular Volume 98 fL (80-100); Mean Platelet Volume 9.1 fL (9.1-12.4); NEUTROPHILS ABSOLUTE AUTO 8.03 K/mm3 (1.96-9.15); NEUTROPHILS PERCENT AUTO 75 % (41-73); Platelet Count 126 K/mm3 (150-400); RDW Coefficient Variation 12.1 % (11.7-14.2); RDW Standard Deviation 43.7 fL (35.1-46.3); Red Blood Cell Count 4.29 M/mm3 (4.30-5.90); White Blood Cell Count 10.75 K/mm3 (4.00-11.30)
[2019-07-12 05:21] LABS: Anion Gap 5 mmol/L (6-16); Blood Urea Nitrogen 20 mg/dL (8-24); CO2, Blood 27 mmol/L (21-32); Calcium, Blood 8.5 mg/dL (8.5-10.1); Chloride, Blood 104 mmol/L (98-108); Creatinine, Blood 0.87 mg/dL (0.60-1.20); Glomerular Filtration Rate >60 (60-); Glucose, Blood 116 mg/dL (70-99); Potassium, Blood 3.5 mmol/L (3.5-5.5); Sodium, Blood 136 mmol/L (136-145)
--- NOTE | 2019-07-12 07:32 | NUR ---
NOC SHIFT SUMMARY PT COOPERATIVE WITH CARE. TURNED THROUGH THE NIGHT TO PREVENT SORES. CONTINUED PAIN IN R SHOULDER. VSS. THOUGHT AT TIMES PT MOVES ARM DURING BP CHECK CAUSING IT TO BE HIGH. WHEN RECHECKED IT IS WNL. REPORT TO ONCOMING RN.
--- NOTE | 2019-07-12 19:33 | NUR ---
SHIFT SUMMARY-PT ALERT, PLESANT AND COOPERATIVE. HE HAS SOME INTERMITENT CONFUSION. HE IS HAVING PAIN INT THE LEFT SHOULDER. RADIOGRAPHS TAKEN THIS AFTERNOON. PT WORKED WITH SPEECH THERAPY TAKES HIS MEDICATIONS WHOLE IN APPLESAUCE. UP IN THE CHAIR FOR LUNCH. WORKED WITH PT AND OT, TOLERATED BOTH WELL. PT IS INCONTINENT AND REQUIRED ATTENDS CHANGE SEVERAL TIMES THIS SHIFT. HE IS EATING AND DRINKING WELL.
--- NOTE | 2019-07-12 20:29 | NUR ---
GARTH IS ALERT AND PLEASANT BUT IS VERY FORGETFUL IN HIS CARE AND NEEDS. HE CALLS AND DOES NOT REMEMBER BY THE TIME I GET TO THE ROOM. MEDS ADMINISTERED. GROIN SLIGHTLY RED, ATTENDS DRY. RIGHT SHOULDER PAINFUL WITH MOVMENT. ELEVATED ON PILLOW. LUNG SOUNDS CLEAR BUT DIMINISHED. MILD EDEMA IN LEGS. CALL LIGHT IN REACH, WILL CONTINUE TO MONITOR.
--- NOTE | 2019-07-13 05:28 | NUR ---
SHIFT SUMMARY: GARTH HAD OFF AND ON CONFUSION/FORGETFULNESS TONIGHT. WAS NOT ABLE TO REMEMBER WHAT HE HAD CALLED ABOUT AND OTHER TIMES REPEATING QUESTIONS ALREADY ANSWERED. PAIN HAS BEEN MANAGED WITH TYLENOL EVERY 6 HOURS PER ORDERS. BRING THE PAIN TO 4 WHILE NOT MOVING BUT MOVING THE ARM STILL RAISES THE PAIN. VS HAVE REMAINED WNL. HE USED CPAP ABOUT 30% OF THE NIGHT, HE CONTINUED TO TAKE IT OFF. SATS HAVE REMAINED IN THE 90'S EXCEPT OCCATIONAL DROPS THAT COME RIGHT BACK UP. CALL LIGHT REMAINED IN REACH AND USED APPROPRIATLY.
--- NOTE | 2019-07-13 17:40 | NUR ---
SUMMARY PT RESTING QUIETLY IN BED, WAKES EASILY, PT HAS BEEN PLEASANT AND COOPERATIVE WITH CARE, FORGETFUL AT TIMES, WAS UP WALKING IN THE HALLS TODAY WITH PT/OT, UP IN THE CHAIR SEVERAL TIMES, CT SCAN OF L ARM DONE, SPOUSE HAS BEEN IN TO VISIT, NO COMPLAINTS, VSS, NO ACUTE CHANGES, WILL CONT TO MONITOR
--- NOTE | 2019-07-13 19:30 | NUR ---
GARTH WAS FOUND WITH HIS LEGS HANGING OFF THE SIDE. HE SAID HE WAS NOT SURE WHAT HE WAS DOING. MIRROR SPECIALIST AND I HELPED TO GET HIM BACK TO IN THE BED, AND POSITION HIM CORRECTLY NOT SIDE WAYS. ATTENDS DRY AT THIS TIME. GAVE HIM THE CALL LIGHT AND ENCOURAGED HIM TO USE IT. BED ALARM IS ON. WILL CONTINUE TO MONITOR.
--- NOTE | 2019-07-14 04:54 | NUR ---
BED ALARM SOUNDING, PATIENT FOUND SLIDING OFF THE BED ONTO HIS KNEES I WALKED IN. HE SAID HE HAD TO PEE, FORGOT TO USE THE CALL LIGHT. HE HAD HIS ATTENDS OFF AND WAS URINATING ON THE FLOOR. ASSISTED HIM BACK TO STANDING POSITION AND BACK INTO BED. PLACED NEW ATTENDS ON HIM AND CLEANED UP THE FLOOR. GOT HIM POSITIONED IN BED, ORIENTED HIM AGAIN TO CALLING FOR NEED TO USE THE BATHROOM. INFORMED HIM HE IS NOT ALLOWED TO GET OUT OF BED WITH OUT HELP. 3 RAILS ARE UP. BED ALARM SENSITIVITY CHANGED TO SITTING UP IN BED. CHARGE WAS INFORMED OF SITUATION.
--- NOTE | 2019-07-14 05:53 | NUR ---
SHIFT SUMMARY: GARTH HAS BEEN UP AND DOWN ALL NIGHT. HE HAS SET OFF HIS BED ALARM 4 TIMES THIS SHIFT TRYING TO GET OUT OF BED TO URINATE. WE HAVE TRIED ASKING HIM IF HE NEEDS TO URINATE EVERY TIME WE HAVE BEEN IN THE ROOM. ATTEMPTED TO GIVE HIM URINAL BUT HE JUST SPILLS IT IN THE BED. TRIED TO GET HIM TO USE HIS CALL LIGHT TO CALL USE BUT HE FORGETS. HE DID HAVE A NEAR MISS FALL THIS MORNING, WHERE I FOUND HIM ROLLING OUT OF BED ONTO HIS KNEES JUST THE BED ALARM SOUNDED. HE WAS URINATING ON THE FLOOR. NO INJURIES OCCURRED. VS HAVE REMAINED STABLE. HE JUST CONFUSED ABOUT WHERE HE IS AT AND DOES NOT FOLLOW DIRECTION. HE HAD VERY GOOD OUTPUT THIS SHIFT. NO OTHER ACUTE CHANGES OCCURRED, WILL REPORT TO DAY SHIFT.
--- NOTE | 2019-07-14 06:57 | NUR ---
PT GAVE PERMISSION FOR STUDENT NURSE TO CARE FOR HIM [phone] 07/14/2019
--- NOTE | 2019-07-14 13:12 | NUR ---
Pt. is in bed resting and his therapist in the room attending to his needs. offered prayers.
--- NOTE | 2019-07-14 18:16 | NUR ---
SUMMARY PT SITTING UP IN BED EATING DINNER, PT HAS BEEN UP IN THE CHAIR SEVERAL TIMES, PT WORKED WITH PT/OT, SPOUSE HAS BEEN IN TO VISIT, PT FORGETFUL AT TIMES, DOES NOT CONSISTENTLY USE THE CALL LIGHT, OCC INCONTINENCE, VSS, NO ACUTE CHANGES, WILL CONT TO MONITOR
--- NOTE | 2019-07-14 19:30 | NUR ---
GARTH WAS FOUND WITH LEGS OVER THE BED, YELLING OUT FOR HELP. HE NEEDED TO USE THE BATHROOM. ASSISTED WITH URINAL NEEDS, HAD TO CHANGE ATTENDS WELL. REPOSITIONED HIM WITH CAN TESTER HELP IN BED. TALKED TO HIM AGAIN ABOUT NOT GETTING OUT OF BED WITH OUT CALLING FOR HELP ON THE CALL LIGHT. DISCUSSED RISK FOR FALLS. HE SAID HE WILL TRY AND REMEMBER. BED ALARM IS ON, AND 3 RAILS UP FOR SAFETY. CALL LIGHT IN EACH.
--- NOTE | 2019-07-15 05:21 | NUR ---
SHIFT SUMMARY: GARTH HAD A BETTER NIGHT TONIGHT. AT START OF SHIFT, HE WAS NEEDING TO URINATE OFTEN AND WAS VERY FORGETFUL WITH USING THE CALL LIGHT. APPARENTLY HE DOES BETTER DURING THE DAY AND HAS INCREASE CONFUSION AT NIGHT. HE IS USING HIS ARM MORE OFTEN AND ABLE TO MOVE IT WITH LESS PAIN NOTED. TAKES MEDS WITH APPLESAUCE. HE WAS ABLE TO SLEEP 90% OF THE NIGHT TONIGHT WITH CPAP ON, AWAKING UP JUST A FEW MINUTES AGO. HE HAS USED THE CALL LIGHT MORE TONIGHT THEN PREVIOUS NIGHTS. NO OTHER ACUTE CHANGES HAVE OCCURRED THIS SHIFT.
--- NOTE | 2019-07-15 12:30 | NUR ---
SPOKE TO DR LOWE- PT HAD DILANTIN ORDERED UPON DISCHARGE LAST FRIDAY FOR A SIX DAY REGIMEN PER NEUROLOGY. SPOKE TO ABOUT THIS, PT IS AT SIX DAYS NOW, TO DETERMINE IF THE MED IS STILL GOING TO CONTINUE.
--- NOTE | 2019-07-15 13:09 | NUR ---
Met pt. sitting upm in a chair and talking with in the room on visit offered prayers .
--- NOTE | 2019-07-15 15:47 | NUR ---
Met with patient and and memory care director to review pt needs. pt up in chair some difficulty tracking and hearing conversation. review of symptoms. pt states he feels better first day in [facility] that he has not had a headache. pt expressed stress and some tears at people telling him they understand how he feels. he state his eye site is getting worse, he can still hear ok his mouth is dry and sorness no broken teeth noted very poor dentition. pt denies nausea or discomfort to back or joints. He had a bowel movement but has had very chronic constipation. Review with levels of care, Care manger review with pt needs. Discussed with home needs and safety. they are stuggling with ADL's. pt has bedside commode that is to small. Review in [employer] alternate commode pt could order. Reivewed getting a bath aid and sfety. They are planning amove to [place]. Gave her information on [facility] kaycee and review of memory care environment. Pt ins in dementia support group. Advised her to set up primary care physician with [facility] in [place] before they move.
--- NOTE | 2019-07-15 18:43 | NUR ---
SHIFT SUMMARY- PT ALERT AND ORIENTED TO SELF, FAILY AND SITUATION. DOSE HAVE A Dx OF DEMENTIA AND HAS HAD FREQUENT FALLS AT HOME. PLAN IS FOR PT TO GO HOME TOMORROW WITH HOME HEALTH. PT STRENGTH HAS IMPROVED AND IS NOW A 1PA FOR ALL ACTIVITIES. NO ACUTE CHANGES T/O THE SHIFT.
--- NOTE | 2019-07-16 00:19 | NUR ---
07/15/19 9781 PT C/O ITCHING ON BACK AND UNABLE TO SLEEP. RN HAD APPLIED ANTI-ITCH CREAM TWICE EARLIER. PT STATES HE NEEDS "SOMETHING STRONGER". FOR THE ITCH. RN WILL PAGE ON-CALL MD FOR ANOTHER MED.
--- NOTE | 2019-07-16 07:39 | NUR ---
07/16/19 0610 PT LAYING DIAGONAL IN BED AND CONFUSED TO SURROUNDINGS. RN RE-ORIENTED HIM AND POPCORN VENDOR AND RN GOT HIM UP INTO CHAIR HE WAS INCONTINENT OF URINE ON BED LINENS. PARTIAL BATH GIVEN. CHAIR ALARM ON. CALL VILLAGOMEZ GIVEN AND REMINDED TO CALL FOR HELP UP. PT STATES "OKAY." PT MORE CONFUSED AT NIGHT AND OCC. TOOK OFF CPAP AND CONT. PULSE OX WOULD ALARM.
--- NOTE | 2019-07-16 07:47 | NUR ---
ASSSUMED CARE OF PT- PER REPORT PT MORE IRRITABLE LAST NIGHT THAN PREVIOUS. THIS MORNING HE BECAME ANGRY AND BEGAN USING FOUL LANGUAGE WITH THE MEDIA MARKETING MANAGER WHO PULLED UP HIS SLEVE TO DO HIS VITALS. HE WAS QUICKLY BECOMING ANGRY BECAUSE HIS ARM WAS "BROKEN" AND SHE WAS "NOT BEING CAREFUL." RN SPOKE TO THE PT AND HE EXPRESSED HIS CONCERNSAGAIN USEING FOUL LANGUAGE. RESPECTFULLY ASKED THAT THE PT REFRAIN FOR THE USE OF THIS TYPE OF LANGUAGE STAFF ARE NOT TRYING TO HARM HIM. AFTER A FEW MINUTES OF CONVERSATION THE PT BEGAN TO DEESCALATE AND WAS COOPERATIVE WITH ALL CARE. PT STATED THAT HE BELIEVES THAT THE COMMUNISTS ARE RESPONSIBLE FOR HIS ITCHY BACK.... RANDOMLY AFTER THE CONVERSATION (TOTALLY OFF TOPIC).
[2019-07-16] MEDS ORDERED: Prinivil10 MG PO (11:33)
--- NOTE | 2019-07-16 15:24 | NUR ---
DISCHARGE NOTE- PT DISCHARGED HOME. SPOUSE PRESENT FOR DISCHARGE TEACHING. PT WENT TO THE BATHROOM AND HAD A LARGE BM WITH MINIMAL ASSISTANCE WITH AMBULATION FOR SAFETY. PT SPOUSE MANAGES HIS CARE AND WAS GIVEN VERBAL AND WRITTEN DISCHARGE INSTRUCTIONS AND ACKNOWLEDGED UNDESTANDING OF THEM. NO FURTHER QUESTIONS AT THE TIME OF DISCHARGE. PT DECLINED TYLENOL AND EYE DROPS AT 1300 SPOUSE PRESENT AND STATED THE PT CAN TAKE THEM WHEN HE GETS HOME. IV DC'D PRIOR TO DISCHARGE.
== END 2019-07-16 15:07 | disposition home health service (06) ==
LOC: ER 15:36 → MEDS 15:37 → ENPENDDIS 07-16 09:57 → MEDS 07-16 15:07
PROVIDERS: Emergency Medicine; Nurse Practitioner Acute Care; ADMIT Internal Medicine
DX: R53.1 Weakness (principal); J69.0 Pneumonitis due to inhalation of food and vomit; I67.2 Cerebral atherosclerosis; F03.90 Unspecified dementia, unspecified severity, without behavioral disturbance, psychotic disturbance, mood disturbance, and anxiety; I10 Essential (primary) hypertension; G47.33 Obstructive sleep apnea (adult) (pediatric); M19.012 Primary osteoarthritis, left shoulder; M19.011 Primary osteoarthritis, right shoulder; G92 Toxic encephalopathy; A41.9 Sepsis, unspecified organism; E66.9 Obesity, unspecified; S06.5X9D Traumatic subdural hemorrhage with loss of consciousness of unspecified duration, subsequent encounter; Z88.5 Allergy status to narcotic agent; Z99.89 Dependence on other enabling machines and devices; Z79.82 Long term (current) use of aspirin; Z79.899 Other long term (current) drug therapy; Z87.891 Personal history of nicotine dependence; Z68.31 Body mass index [BMI] 31.0-31.9, adult
CPT/HCPCS: 36415; 70450; 71046; 73020; 73200; 73560-LT; 80048; 80053; 80185; 81001; 84145; 85025; 85610; 92610; 93005; 93010; 94762; 96374; 96375; 97110; 97112; 97116; 97162; 97166; 97530; 97535; 99285-25; A9270; A9270-GY; G0378; J0360; J2405; Q0163

== ENCOUNTER 2019-10-25 08:52 | Emergency (ER) | payer OTHER, MEDICARE, BC ==
[~2019-10-25] VITALS: Ht 175.3 cm; Wt 105.7 kg
[~2019-10-25 08:52] MED LIST changes: +MELATONIN5 M1 PO; -MICROZIDE12.5 M2 PO; +Prinivil10 MG PO
[2019-10-25] MEDS ORDERED: ASPI81CH PO (09:48)
[2019-10-25 09:59] LABS: BASOPHILS ABSOLUTE AUTO 0.02 K/mm3 (0.00-0.23); BASOPHILS PERCENT AUTO 0 % (0-2); EOSINOPHILS ABSOLUTE AUTO 0.15 K/mm3 (0.00-0.68); EOSINOPHILS PERCENT AUTO 2 % (0-6); Hematocrit 42.1 % (37.0-53.0); Hemoglobin 14.1 g/dL (13.5-17.5); IMMATURE GRAN ABSOLUTE AUTO 0.02 K/mm3 (0.00-0.10); IMMATURE GRAN PERCENT AUTO 0 % (0-1); LYMPHOCYTES ABSOLUTE AUTO 3.08 K/mm3 (0.84-5.20); LYMPHOCYTES PERCENT AUTO 37 % (21-46); MONOCYTES ABSOLUTE AUTO 0.62 K/mm3 (0.16-1.47); MONOCYTES PERCENT AUTO 7 % (4-13); Mean Corpuscular HGB 33.5 pg (26.0-34.0); Mean Corpuscular HGB Conc 33.5 g/dL (31.5-36.5); Mean Corpuscular Volume 100 fL (80-100); Mean Platelet Volume 9.3 fL (9.1-12.4); NEUTROPHILS ABSOLUTE AUTO 4.51 K/mm3 (1.96-9.15); NEUTROPHILS PERCENT AUTO 54 % (41-73); Platelet Count 158 K/mm3 (150-400); RDW Coefficient Variation 12.2 % (11.7-14.2); RDW Standard Deviation 44.7 fL (35.1-46.3); Red Blood Cell Count 4.21 M/mm3 (4.30-5.90)
[2019-10-25 10:13] LABS: Alanine Aminotransfer (ALT/SGP 21 U/L (12-78); Albumin, Blood 3.3 g/dL (3.4-5.0); Albumin/Globulin Ratio 0.8 (0.8-1.8); Alk Phos 92 U/L (50-136); Anion Gap 5 mmol/L (6-16); Aspartate Aminotrans (AST/SGOT 16 U/L (12-37); Bilirubin, Total 0.4 mg/dL (0.1-1.0); Blood Urea Nitrogen 19 mg/dL (8-24); Bun/Creatinine Ratio 20.7 (12.0-20.0); CO2, Blood 30 mmol/L (21-32); Calcium, Blood 8.2 mg/dL (8.5-10.1); Chloride, Blood 108 mmol/L (98-108); Creatinine, Blood 0.92 mg/dL (0.60-1.20); Glomerular Filtration Rate >60 (60-); Glucose, Blood 88 mg/dL (70-99); Potassium, Blood 3.8 mmol/L (3.5-5.5); Sodium, Blood 143 mmol/L (136-145); Total Protein, Blood 7.3 g/dL (6.4-8.2); Troponin I <0.015 ng/mL (0.000-0.040)
== END 2019-10-25 15:30 | disposition short-term general hospital (02) ==
LOC: ER 08:52
PROVIDERS: Emergency Medicine
DX: R07.9 Chest pain, unspecified (principal); I10 Essential (primary) hypertension; I25.10 Atherosclerotic heart disease of native coronary artery without angina pectoris; N40.0 Benign prostatic hyperplasia without lower urinary tract symptoms; F03.90 Unspecified dementia, unspecified severity, without behavioral disturbance, psychotic disturbance, mood disturbance, and anxiety; G47.33 Obstructive sleep apnea (adult) (pediatric); Z88.5 Allergy status to narcotic agent; Z79.899 Other long term (current) drug therapy; Z99.89 Dependence on other enabling machines and devices; Z87.891 Personal history of nicotine dependence
CPT/HCPCS: 36415; 71045; 80053; 83880; 84484; 85025; 93005; 93010; 99285-25

== ENCOUNTER 2019-10-27 18:08 | Emergency (ER) | payer OTHER, MEDICARE, BC ==
[~2019-10-27] VITALS: Ht 177.8 cm; Wt 107.0 kg
[~2019-10-27 18:08] MED LIST changes: +ASPI81CH PO
[2019-10-27 19:16] LABS: BASOPHILS ABSOLUTE AUTO 0.02 K/mm3 (0.00-0.23); BASOPHILS PERCENT AUTO 0 % (0-2); EOSINOPHILS ABSOLUTE AUTO 0.04 K/mm3 (0.00-0.68); EOSINOPHILS PERCENT AUTO 0 % (0-6); Hematocrit 44.4 % (37.0-53.0); Hemoglobin 15.4 g/dL (13.5-17.5); IMMATURE GRAN ABSOLUTE AUTO 0.03 K/mm3 (0.00-0.10); IMMATURE GRAN PERCENT AUTO 0 % (0-1); LYMPHOCYTES ABSOLUTE AUTO 1.01 K/mm3 (0.84-5.20); LYMPHOCYTES PERCENT AUTO 11 % (21-46); MONOCYTES ABSOLUTE AUTO 0.34 K/mm3 (0.16-1.47); MONOCYTES PERCENT AUTO 4 % (4-13); Mean Corpuscular HGB 33.5 pg (26.0-34.0); Mean Corpuscular HGB Conc 34.7 g/dL (31.5-36.5); Mean Platelet Volume 9.3 fL (9.1-12.4); NEUTROPHILS ABSOLUTE AUTO 7.56 K/mm3 (1.96-9.15); NEUTROPHILS PERCENT AUTO 84 % (41-73); Platelet Count 185 K/mm3 (150-400); RDW Coefficient Variation 11.9 % (11.7-14.2); RDW Standard Deviation 42.2 fL (35.1-46.3)
[2019-10-27 19:17] LABS: Mean Corpuscular Volume 97 fL (80-100)
[2019-10-27 19:36] LABS: Alanine Aminotransfer (ALT/SGP 21 U/L (12-78); Albumin, Blood 3.5 g/dL (3.4-5.0); Albumin/Globulin Ratio 0.9 (0.8-1.8); Alk Phos 99 U/L (50-136); Anion Gap 8 mmol/L (6-16); Aspartate Aminotrans (AST/SGOT 9 U/L (12-37); Bilirubin, Total 0.7 mg/dL (0.1-1.0); Blood Urea Nitrogen 24 mg/dL (8-24); Bun/Creatinine Ratio 23.3 (12.0-20.0); CO2, Blood 23 mmol/L (21-32); Calcium, Blood 8.8 mg/dL (8.5-10.1); Chloride, Blood 104 mmol/L (98-108); Creatinine, Blood 1.03 mg/dL (0.60-1.20); Glomerular Filtration Rate >60 (60-); Glucose, Blood 142 mg/dL (70-99); Potassium, Blood 3.9 mmol/L (3.5-5.5); Sodium, Blood 135 mmol/L (136-145); Total Protein, Blood 7.5 g/dL (6.4-8.2); Troponin I <0.015 ng/mL (0.000-0.040)
[2019-10-27 19:40] LABS: Source, Urine Clean Catch
[2019-10-27 19:44] LABS: Bilirubin, Urine Neg (Neg); Blood, Urine Neg (Neg); Glucose Qualitative, Urine Neg (Neg); Ketones, Urine Neg (Neg); Leukocyte Esterase, Urine Neg (Neg); Nitrite, Urine Neg (Neg); Protein, Urine Neg (Neg); Specific Gravity, Urine 1.015 (1.003-1.022); Urobilinogen, Urine NORM (Normal)
[2019-10-27 19:53] LABS: Appearance, Urine Clear (Clear); Color, Urine Yellow (P-Yellow)
== END 2019-10-27 20:46 | disposition home or self-care (01) ==
LOC: ER 18:08
PROVIDERS: Emergency Medicine
DX: F03.90 Unspecified dementia, unspecified severity, without behavioral disturbance, psychotic disturbance, mood disturbance, and anxiety (principal); R41.0 Disorientation, unspecified; R53.83 Other fatigue; R07.9 Chest pain, unspecified; I25.10 Atherosclerotic heart disease of native coronary artery without angina pectoris; I10 Essential (primary) hypertension; G47.33 Obstructive sleep apnea (adult) (pediatric); N40.0 Benign prostatic hyperplasia without lower urinary tract symptoms; Z86.73 Personal history of transient ischemic attack (TIA), and cerebral infarction without residual deficits; Z87.891 Personal history of nicotine dependence; Z88.5 Allergy status to narcotic agent; Z79.899 Other long term (current) drug therapy; Z79.82 Long term (current) use of aspirin
CPT/HCPCS: 36415; 70450; 71045; 80053; 81003; 84484; 85025; 93005; 93010; 99284-25

== ENCOUNTER 2019-11-03 13:08 | Emergency (ER) | payer OTHER, MEDICARE, BC ==
[~2019-11-03] VITALS: Ht 175.3 cm; Wt 105.7 kg
[2019-11-03] MEDS ORDERED: ONDA4 MM (14:06)
== END 2019-11-03 15:07 | disposition home or self-care (01) ==
LOC: ER 13:08
DX: F91.1 Conduct disorder, childhood-onset type (principal); Z88.5 Allergy status to narcotic agent; Z79.82 Long term (current) use of aspirin; Z79.899 Other long term (current) drug therapy; F03.90 Unspecified dementia, unspecified severity, without behavioral disturbance, psychotic disturbance, mood disturbance, and anxiety; I25.10 Atherosclerotic heart disease of native coronary artery without angina pectoris; Z87.01 Personal history of pneumonia (recurrent); N40.0 Benign prostatic hyperplasia without lower urinary tract symptoms; I10 Essential (primary) hypertension; Z86.73 Personal history of transient ischemic attack (TIA), and cerebral infarction without residual deficits; Z87.891 Personal history of nicotine dependence
CPT/HCPCS: 99283

== ENCOUNTER 2020-03-12 11:00 | Emergency (ER) | payer OTHER, MEDICARE ==
[~2020-03-12] VITALS: Ht 175.3 cm; Wt 105.7 kg
[~2020-03-12 11:00] MED LIST changes: +ONDA4 MM
[2020-03-12 11:17] LABS: Source, Urine Clean Catch
[2020-03-12 11:21] LABS: Appearance, Urine Clear (Clear); Bilirubin, Urine Neg (Neg); Blood, Urine Neg (Neg); Color, Urine Yellow (P-Yellow); Glucose Qualitative, Urine Neg (Neg); Ketones, Urine Neg (Neg); Leukocyte Esterase, Urine Neg (Neg); Nitrite, Urine Neg (Neg); Protein, Urine Neg (Neg); Urobilinogen, Urine 1+ (Normal); pH, Urine 6.5 (5.0-8.0)
[2020-03-12] MEDS ORDERED: LOSA25 PO (11:25)
[2020-03-12] MEDS ORDERED: DOCU100 PO (11:27)
[2020-03-12] MEDS ORDERED: CLOBET30L TOP (11:27)
[2020-03-12] MEDS ORDERED: ALBU90OI (11:28)
[2020-03-12] MEDS ORDERED: MELATONIN5 M1 PO (11:29)
[2020-03-12 11:33] LABS: BASOPHILS ABSOLUTE AUTO 0.05 K/mm3 (0.00-0.23); BASOPHILS PERCENT AUTO 1 % (0-2); EOSINOPHILS ABSOLUTE AUTO 0.26 K/mm3 (0.00-0.68); EOSINOPHILS PERCENT AUTO 4 % (0-6); Hematocrit 42.6 % (37.0-53.0); Hemoglobin 14.3 g/dL (13.5-17.5); IMMATURE GRAN ABSOLUTE AUTO 0.01 K/mm3 (0.00-0.10); IMMATURE GRAN PERCENT AUTO 0 % (0-1); LYMPHOCYTES PERCENT AUTO 23 % (21-46); MONOCYTES ABSOLUTE AUTO 0.62 K/mm3 (0.16-1.47); MONOCYTES PERCENT AUTO 8 % (4-13); Mean Corpuscular HGB 32.6 pg (26.0-34.0); Mean Corpuscular HGB Conc 33.6 g/dL (31.5-36.5); Mean Corpuscular Volume 97 fL (80-100); Mean Platelet Volume 9.1 fL (9.1-12.4); NEUTROPHILS PERCENT AUTO 65 % (41-73); Platelet Count 140 K/mm3 (150-400); RDW Coefficient Variation 12.2 % (11.7-14.2); RDW Standard Deviation 43.8 fL (35.1-46.3); Red Blood Cell Count 4.39 M/mm3 (4.30-5.90); White Blood Cell Count 7.44 K/mm3 (4.00-11.30)
[2020-03-12 11:53] LABS: Alanine Aminotransfer (ALT/SGP 30 U/L (12-78); Albumin, Blood 3.3 g/dL (3.4-5.0); Albumin/Globulin Ratio 0.9 (0.8-1.8); Alk Phos 102 U/L (50-136); Anion Gap 5 mmol/L (6-16); Aspartate Aminotrans (AST/SGOT 20 U/L (12-37); Bilirubin, Total 0.5 mg/dL (0.1-1.0); Blood Urea Nitrogen 14 mg/dL (8-24); Bun/Creatinine Ratio 16.9 (12.0-20.0); CO2, Blood 30 mmol/L (21-32); Calcium, Blood 8.4 mg/dL (8.5-10.1); Chloride, Blood 107 mmol/L (98-108); Creatinine, Blood 0.83 mg/dL (0.60-1.20); Globulin, Blood 3.6 g/dL (2.2-4.0); Glomerular Filtration Rate >60 (60-); Glucose, Blood 110 mg/dL (70-99); Potassium, Blood 3.3 mmol/L (3.5-5.5); Sodium, Blood 142 mmol/L (136-145); Total Protein, Blood 6.9 g/dL (6.4-8.2); Troponin I <0.015 ng/mL (0.000-0.040)
== END 2020-03-12 13:55 | disposition home or self-care (01) ==
LOC: ER 11:00
PROVIDERS: Emergency Medicine
DX: R53.1 Weakness (principal); I10 Essential (primary) hypertension; I25.10 Atherosclerotic heart disease of native coronary artery without angina pectoris; F03.90 Unspecified dementia, unspecified severity, without behavioral disturbance, psychotic disturbance, mood disturbance, and anxiety; Z86.73 Personal history of transient ischemic attack (TIA), and cerebral infarction without residual deficits; Z87.891 Personal history of nicotine dependence; Z04.3 Encounter for examination and observation following other accident; Z88.5 Allergy status to narcotic agent; Z79.82 Long term (current) use of aspirin; Z79.899 Other long term (current) drug therapy
CPT/HCPCS: 70450; 80053; 81003; 83880; 84484; 85025; 93005; 93010; 99285-25; A9270

== ENCOUNTER 2020-04-14 18:25 | Emergency (ER) | payer OTHER, MEDICARE, BC ==
[~2020-04-14] VITALS: Ht 175.3 cm; Wt 101.2 kg
[~2020-04-14 18:25] MED LIST changes: -ASPI81CH PO; -ATOR40TA PO; -CENTRUM SILVER1 EAC2 PO; -DULO60 PO; -FINA5 PO; -Fruity C250 MG PO; -MELATONIN5 M1 PO; -POTA10T PO
[2020-04-14 19:11] LABS: Source, Urine Clean Catch
[2020-04-14 19:12] LABS: BASOPHILS ABSOLUTE AUTO 0.05 K/mm3 (0.00-0.23); BASOPHILS PERCENT AUTO 1 % (0-2); EOSINOPHILS ABSOLUTE AUTO 0.28 K/mm3 (0.00-0.68); EOSINOPHILS PERCENT AUTO 4 % (0-6); Hematocrit 42.8 % (37.0-53.0); Hemoglobin 14.9 g/dL (13.5-17.5); IMMATURE GRAN ABSOLUTE AUTO 0.03 K/mm3 (0.00-0.10); IMMATURE GRAN PERCENT AUTO 0 % (0-1); LYMPHOCYTES ABSOLUTE AUTO 2.08 K/mm3 (0.84-5.20); LYMPHOCYTES PERCENT AUTO 26 % (21-46); MONOCYTES ABSOLUTE AUTO 0.82 K/mm3 (0.16-1.47); MONOCYTES PERCENT AUTO 10 % (4-13); Mean Corpuscular HGB Conc 34.8 g/dL (31.5-36.5); Mean Corpuscular Volume 95 fL (80-100); NEUTROPHILS ABSOLUTE AUTO 4.69 K/mm3 (1.96-9.15); NEUTROPHILS PERCENT AUTO 59 % (41-73); RDW Coefficient Variation 12.5 % (11.7-14.2); RDW Standard Deviation 43.6 fL (35.1-46.3); Red Blood Cell Count 4.52 M/mm3 (4.30-5.90); White Blood Cell Count 7.95 K/mm3 (4.00-11.30)
[2020-04-14 19:13] LABS: Mean Platelet Volume 9.5 fL (9.1-12.4); Platelet Count 137 K/mm3 (150-400)
[2020-04-14 19:16] LABS: Appearance, Urine Clear (Clear); Bilirubin, Urine Neg (Neg); Blood, Urine Neg (Neg); Color, Urine Yellow (P-Yellow); Glucose Qualitative, Urine Neg (Neg); Ketones, Urine Neg (Neg); Leukocyte Esterase, Urine Neg (Neg); Nitrite, Urine Neg (Neg); Protein, Urine Neg (Neg); Urobilinogen, Urine NORM (Normal)
[2020-04-14 19:22] LABS: Alanine Aminotransfer (ALT/SGP 27 U/L (12-78); Albumin, Blood 3.6 g/dL (3.4-5.0); Albumin/Globulin Ratio 0.9 (0.8-1.8); Alk Phos 105 U/L (50-136); Anion Gap 6 mmol/L (6-16); Aspartate Aminotrans (AST/SGOT 22 U/L (12-37); Bilirubin, Total 0.8 mg/dL (0.1-1.0); Blood Urea Nitrogen 13 mg/dL (8-24); Bun/Creatinine Ratio 16.9 (12.0-20.0); CO2, Blood 29 mmol/L (21-32); Calcium, Blood 8.8 mg/dL (8.5-10.1); Chloride, Blood 107 mmol/L (98-108); Creatinine, Blood 0.77 mg/dL (0.60-1.20); Globulin, Blood 3.9 g/dL (2.2-4.0); Glomerular Filtration Rate >60 (60-); Glucose, Blood 96 mg/dL (70-99); Potassium, Blood 3.7 mmol/L (3.5-5.5); Sodium, Blood 142 mmol/L (136-145); Total Protein, Blood 7.5 g/dL (6.4-8.2)
[2020-04-16] MEDS ORDERED: FINA5 PO (17:25)
[2020-04-16] MEDS ORDERED: DULO60 PO (17:26)
[2020-04-16] MEDS ORDERED: HYDCHL25 PO (17:27)
[2020-04-16] MEDS ORDERED: ASCO500 PO (17:28)
[2020-04-16] MEDS ORDERED: POTA10T PO (17:29)
[2020-04-16] MEDS ORDERED: ATOR40TA PO (17:29)
[2020-04-16] MEDS ORDERED: CENTRUM SILVER1 EAC2 PO (17:30)
[2020-04-16] MEDS ORDERED: VITAMIN D32000 UNI1 PO (17:31)
[2020-04-16] MEDS ORDERED: TAMS.4ER PO (17:31)
[2020-04-16] MEDS ORDERED: OMEP20ER PO (17:31)
[2020-04-16] MEDS ORDERED: MELATONIN5 M1 PO (17:31)
[2020-04-16] MEDS ORDERED: LOSA25 PO (17:32)
[2020-04-16] MEDS ORDERED: Aspir 8181 MG PO (17:32)
[2020-04-16] MEDS ORDERED: DOCU100 PO (17:34)
[2020-04-16] MEDS ORDERED: ALBU90OI INH (17:34)
[2020-04-16] MEDS ORDERED: [UNRECOGNIZED DRUG - REMARK] PO (17:49)
[2020-04-16] MEDS ORDERED: FAMO40 PO (17:49)
[2020-04-16] MEDS ORDERED: ONDA4 PO (17:50)
[2020-04-16] MEDS ORDERED: Methocarbamol500 MG PO (17:50)
[2020-04-16] MEDS ORDERED: Artificial Tear15 ML BOTHEYES (17:51)
[2020-04-16] MEDS ORDERED: LIDO700A20 TD (17:52)
[2020-04-16] MEDS ORDERED: VOLTAREN ARTHRI20 GM TOP (17:52)
[2020-04-16] MEDS ORDERED: [UNRECOGNIZED DRUG - OTHER] TOP (17:56)
[2020-04-16] MEDS ORDERED: MENTHOL TOP (17:56)
[2020-04-19] MEDS ORDERED: ACET325 PO (05:58)
[2020-04-19] MEDS ORDERED: ALEVAZOL56.7 GM TOP (06:00)
[2020-04-19] MEDS ORDERED: HYDROCORTISONE28 GM TOP (06:03)
[2020-04-19] MEDS ORDERED: Prinivil10 MG PO (06:04)
== END 2020-04-14 22:18 | disposition home or self-care (01) ==
LOC: ER 18:25
PROVIDERS: Emergency Medicine
DX: F03.90 Unspecified dementia, unspecified severity, without behavioral disturbance, psychotic disturbance, mood disturbance, and anxiety (principal); L03.116 Cellulitis of left lower limb; L03.115 Cellulitis of right lower limb; M25.512 Pain in left shoulder; R29.6 Repeated falls; Z79.82 Long term (current) use of aspirin; Z79.899 Other long term (current) drug therapy
CPT/HCPCS: 36415; 70450; 71045; 80053; 81003; 83880; 85025; 93005; 93010; 99285-25

== ENCOUNTER 2020-06-06 14:57 | Emergency (ER) | payer MEDICARE, OTHER, BC ==
[~2020-06-06] VITALS: Ht 180.3 cm; Wt 103.0 kg
[~2020-06-06 14:57] MED LIST changes: +ALEVAZOL56.7 GM TOP; +CLOBET30L TOP; +FAMO40 PO; +HYDCHL25 PO; +HYDROCORTISONE28 GM TOP; +LIDO700A20 TD; +LOSA25 PO; +MENTHOL TOP; +Methocarbamol500 MG PO; +ONDA4 PO; +POTA10T PO; +VOLTAREN ARTHRI20 GM TOP; +[UNRECOGNIZED DRUG - OTHER] TOP; +[UNRECOGNIZED DRUG - REMARK] PO
[2020-06-06 15:33] LABS: BASOPHILS ABSOLUTE AUTO 0.04 K/mm3 (0.00-0.23); BASOPHILS PERCENT AUTO 1 % (0-2); EOSINOPHILS ABSOLUTE AUTO 0.32 K/mm3 (0.00-0.68); EOSINOPHILS PERCENT AUTO 5 % (0-6); Hematocrit 40.6 % (37.0-53.0); IMMATURE GRAN ABSOLUTE AUTO 0.02 K/mm3 (0.00-0.10); IMMATURE GRAN PERCENT AUTO 0 % (0-1); LYMPHOCYTES ABSOLUTE AUTO 2.48 K/mm3 (0.84-5.20); LYMPHOCYTES PERCENT AUTO 37 % (21-46); MONOCYTES ABSOLUTE AUTO 0.68 K/mm3 (0.16-1.47); MONOCYTES PERCENT AUTO 10 % (4-13); Mean Corpuscular HGB 33.5 pg (26.0-34.0); Mean Corpuscular HGB Conc 34.5 g/dL (31.5-36.5); Mean Corpuscular Volume 97 fL (80-100); Mean Platelet Volume 8.9 fL (9.1-12.4); NEUTROPHILS ABSOLUTE AUTO 3.12 K/mm3 (1.96-9.15); NEUTROPHILS PERCENT AUTO 47 % (41-73); Platelet Count 161 K/mm3 (150-400); RDW Coefficient Variation 13.1 % (11.7-14.2); RDW Standard Deviation 46.7 fL (35.1-46.3); Red Blood Cell Count 4.18 M/mm3 (4.30-5.90); White Blood Cell Count 6.66 K/mm3 (4.00-11.30)
[2020-06-06 15:56] LABS: Troponin I 0.017 ng/mL (0.000-0.040)
[2020-06-06 15:57] LABS: Alanine Aminotransfer (ALT/SGP 33 U/L (12-78); Albumin, Blood 3.5 g/dL (3.4-5.0); Albumin/Globulin Ratio 0.9 (0.8-1.8); Alk Phos 110 U/L (50-136); Anion Gap 5 mmol/L (6-16); Aspartate Aminotrans (AST/SGOT 26 U/L (12-37); Bilirubin, Total 0.5 mg/dL (0.1-1.0); Blood Urea Nitrogen 17 mg/dL (8-24); Bun/Creatinine Ratio 21.7 (12.0-20.0); CO2, Blood 30 mmol/L (21-32); Calcium, Blood 9.1 mg/dL (8.5-10.1); Chloride, Blood 106 mmol/L (98-108); Creatinine, Blood 0.78 mg/dL (0.60-1.20); Globulin, Blood 3.9 g/dL (2.2-4.0); Glomerular Filtration Rate >60 (60-); Glucose, Blood 112 mg/dL (70-99); International Normalized Ratio 1.01; Potassium, Blood 3.3 mmol/L (3.5-5.5); Prothrombin Time Results 10.8 Sec (9.7-11.5); Sodium, Blood 141 mmol/L (136-145); Total Protein, Blood 7.4 g/dL (6.4-8.2)
[2020-06-06 16:50] LABS: Source, Urine Voided
[2020-06-06 17:12] LABS: Bilirubin, Urine Neg (Neg); Blood, Urine Neg (Neg); Glucose Qualitative, Urine Neg (Neg); Ketones, Urine Neg (Neg); Leukocyte Esterase, Urine Neg (Neg); Nitrite, Urine Neg (Neg); Protein, Urine Neg (Neg); Urobilinogen, Urine NORM (Normal)
[2020-06-06 17:24] LABS: Appearance, Urine Clear (Clear); Color, Urine Pale Yellow (P-Yellow)
[2020-06-06] MEDS ORDERED: FINA5 PO (19:33)
[2020-06-06] MEDS ORDERED: DULO60 PO (19:33)
[2020-06-06] MEDS ORDERED: ASCO500 PO (19:34)
[2020-06-06] MEDS ORDERED: ATOR40TA PO (19:34)
[2020-06-06] MEDS ORDERED: CENTRUM SILVER1 EAC2 PO (19:34)
[2020-06-06] MEDS ORDERED: OMEP20ER PO (19:35)
[2020-06-06] MEDS ORDERED: Vitamin D2000 UNIT PO (19:35)
[2020-06-06] MEDS ORDERED: MELA3 PO (19:36)
[2020-06-06] MEDS ORDERED: DOCU100 PO (19:36)
[2020-06-06] MEDS ORDERED: Aspir 8181 MG PO (19:36)
[2020-06-06] MEDS ORDERED: TAMS.4ER PO (19:36)
[2020-06-06] MEDS ORDERED: AMLO10 PO (19:37)
[2020-06-06] MEDS ORDERED: Seroquel Xr50 MG PO (19:38)
[2020-06-06] MEDS ORDERED: LOSA25 PO (19:38)
[2020-06-06] MEDS ORDERED: ZYRTEC10 M2 PO (19:42)
[2020-06-06] MEDS ORDERED: Artificial Tear15 ML BOTHEYES (19:43)
[2020-06-06] MEDS ORDERED: ACET325 PO (19:43)
[2020-06-06] MEDS ORDERED: ALBU90OI INH (19:43)
[2020-06-06] MEDS ORDERED: Methocarbamol500 MG PO (19:45)
[2020-06-06] MEDS ORDERED: ONDA4 PO (19:45)
[2020-06-06] MEDS ORDERED: Flonase 0.05% N16 GM (19:46)
[2020-06-06] MEDS ORDERED: DICLOFENAC SOD100 G1 TOP (19:46)
[2020-06-06] MEDS ORDERED: LIDO700A20 TD (19:47)
[2020-06-06] MEDS ORDERED: MENTHOL TOP (19:49)
[2020-06-06] MEDS ORDERED: [UNRECOGNIZED DRUG - OTHER] TOP (19:49)
== END 2020-06-06 21:07 | disposition home or self-care (01) ==
LOC: ER 14:57
PROVIDERS: Emergency Medicine
DX: I10 Essential (primary) hypertension (principal); R41.82 Altered mental status, unspecified; I25.10 Atherosclerotic heart disease of native coronary artery without angina pectoris; Z79.82 Long term (current) use of aspirin; Z79.899 Other long term (current) drug therapy; Z88.5 Allergy status to narcotic agent; Z88.8 Allergy status to other drugs, medicaments and biological substances; Z86.73 Personal history of transient ischemic attack (TIA), and cerebral infarction without residual deficits; Z95.0 Presence of cardiac pacemaker; Z87.891 Personal history of nicotine dependence
CPT/HCPCS: 36415; 70450; 80053; 81003; 82140; 83605; 83880; 84484; 85025; 85610; 93005; 93010; 99284-25

== ENCOUNTER 2020-10-23 18:28 | Emergency (ER) | payer MEDICARE, OTHER, BC ==
[~2020-10-23] VITALS: Ht 177.8 cm; Wt 103.0 kg
[~2020-10-23 18:28] MED LIST changes: +ALBU90OI INH; +AMLO10 PO; +ASCO500 PO; +ATOR40TA PO; +Artificial Tear15 ML BOTHEYES; +CENTRUM SILVER1 EAC2 PO; +DICLOFENAC SOD100 G1 TOP; +DULO60 PO; +FINA5 PO; +MELA3 PO; +Seroquel Xr50 MG PO; +Vitamin D2000 UNIT PO; +ZYRTEC10 M2 PO
== END 2020-10-23 20:40 | disposition home or self-care (01) ==
LOC: ER 18:28
DX: S00.81XA Abrasion of other part of head, initial encounter (principal); I10 Essential (primary) hypertension; Z88.5 Allergy status to narcotic agent; Z79.899 Other long term (current) drug therapy; Z79.82 Long term (current) use of aspirin; Z88.8 Allergy status to other drugs, medicaments and biological substances; Z88.6 Allergy status to analgesic agent; Z87.891 Personal history of nicotine dependence; W01.10XA Fall on same level from slipping, tripping and stumbling with subsequent striking against unspecified object, initial encounter
CPT/HCPCS: 70450; 72170; 99284-25

== ENCOUNTER 2020-11-16 22:08 | Emergency (ER) | payer MEDICARE, OTHER, BC ==
[~2020-11-16] VITALS: Ht 177.8 cm; Wt 103.9 kg
== END 2020-11-17 01:11 | disposition home or self-care (01) ==
LOC: ER 22:08
DX: M25.511 Pain in right shoulder (principal); I10 Essential (primary) hypertension; I25.10 Atherosclerotic heart disease of native coronary artery without angina pectoris; Z88.5 Allergy status to narcotic agent; Z88.8 Allergy status to other drugs, medicaments and biological substances; Z79.899 Other long term (current) drug therapy; Z87.891 Personal history of nicotine dependence
CPT/HCPCS: 73030; 99283-25; A9270

== ENCOUNTER 2020-11-19 12:26 | Emergency (ER) | payer MEDICARE, OTHER, BC ==
[~2020-11-19] VITALS: Ht 177.8 cm; Wt 103.9 kg
[2020-11-19] MEDS ORDERED: QUET25 PO ×2 (14:42→14:50)
== END 2020-11-19 14:52 | disposition home or self-care (01) ==
LOC: ER 12:26
DX: Z71.89 Other specified counseling (principal); M25.511 Pain in right shoulder; Z79.899 Other long term (current) drug therapy
CPT/HCPCS: 99283

== ENCOUNTER → 2021-01-16 | Outpatient (CLI) | payer MEDICARE, OTHER, BC ==
[~2021-01-16] MED LIST changes: +QUET25 PO
== END | disposition home or self-care (01) ==
LOC: LAB 11:25 → LAB SHORT 11:25
DX: C44.321 Squamous cell carcinoma of skin of nose (principal)
CPT/HCPCS: 88305

== ENCOUNTER 2021-06-13 13:46 | Emergency (ER) | payer MEDICARE, OTHER, BC ==
[~2021-06-13] VITALS: Ht 180.3 cm; Wt 109.3 kg
[2021-06-13 15:00] LABS: BASOPHILS ABSOLUTE AUTO 0.04 K/mm3 (0.00-0.23); BASOPHILS PERCENT AUTO 1 % (0-2); EOSINOPHILS PERCENT AUTO 4 % (0-6); Hematocrit 35.6 % (37.0-53.0); Hemoglobin 12.7 g/dL (13.5-17.5); IMMATURE GRAN ABSOLUTE AUTO 0.01 K/mm3 (0.00-0.10); IMMATURE GRAN PERCENT AUTO 0 % (0-1); LYMPHOCYTES PERCENT AUTO 34 % (21-46); MONOCYTES ABSOLUTE AUTO 0.49 K/mm3 (0.16-1.47); MONOCYTES PERCENT AUTO 9 % (4-13); Mean Corpuscular HGB 35.2 pg (26.0-34.0); Mean Corpuscular HGB Conc 35.7 g/dL (31.5-36.5); Mean Corpuscular Volume 99 fL (80-100); Mean Platelet Volume 9.1 fL (9.1-12.4); NEUTROPHILS ABSOLUTE AUTO 2.98 K/mm3 (1.96-9.15); NEUTROPHILS PERCENT AUTO 53 % (41-73); Platelet Count 106 K/mm3 (150-400); RDW Coefficient Variation 12.4 % (11.7-14.2); RDW Standard Deviation 44.8 fL (35.1-46.3); Red Blood Cell Count 3.61 M/mm3 (4.30-5.90); White Blood Cell Count 5.62 K/mm3 (4.00-11.30)
[2021-06-13 15:29] LABS: Alanine Aminotransfer (ALT/SGP 34 U/L (12-78); Albumin, Blood 2.9 g/dL (3.4-5.0); Albumin/Globulin Ratio 0.8 (0.8-1.8); Alk Phos 55 U/L (50-136); Anion Gap 5 mmol/L (6-16); Aspartate Aminotrans (AST/SGOT 26 U/L (12-37); Bilirubin, Total 0.4 mg/dL (0.1-1.0); Blood Urea Nitrogen 15 mg/dL (8-24); Bun/Creatinine Ratio 18.2 (12.0-20.0); CO2, Blood 29 mmol/L (21-32); Calcium, Blood 8.5 mg/dL (8.5-10.1); Chloride, Blood 108 mmol/L (98-108); Creatinine, Blood 0.82 mg/dL (0.60-1.20); Globulin, Blood 3.5 g/dL (2.2-4.0); Glomerular Filtration Rate >60 (60-); Glucose, Blood 139 mg/dL (70-99); Potassium, Blood 3.4 mmol/L (3.5-5.5); Sodium, Blood 142 mmol/L (136-145); Total Protein, Blood 6.4 g/dL (6.4-8.2); Troponin I <0.015 ng/mL (0.000-0.040)
[2021-06-13 16:21] LABS: Influenza A, PCR NEGATIVE (NEGATIVE); Influenza B, PCR NEGATIVE (NEGATIVE); Resp Syncytial Virus, PCR NEGATIVE (NEGATIVE); SARS-Cov-2 (COVID-19) PCR, MMC NEGATIVE (NEGATIVE)
== END 2021-06-13 16:38 | disposition home or self-care (01) ==
LOC: ER 13:46
PROVIDERS: Emergency Medicine
DX: R06.02 Shortness of breath (principal); M25.511 Pain in right shoulder; M25.512 Pain in left shoulder; Z88.5 Allergy status to narcotic agent; Z88.8 Allergy status to other drugs, medicaments and biological substances; Z79.899 Other long term (current) drug therapy; Z79.82 Long term (current) use of aspirin; Z86.73 Personal history of transient ischemic attack (TIA), and cerebral infarction without residual deficits; I10 Essential (primary) hypertension; G47.30 Sleep apnea, unspecified; I25.10 Atherosclerotic heart disease of native coronary artery without angina pectoris; M19.90 Unspecified osteoarthritis, unspecified site; Z87.891 Personal history of nicotine dependence
CPT/HCPCS: 0241U; 71045; 73030; 80053; 83880; 84484; 85025; 93005; 93010; 99284-25; A9270

== ENCOUNTER 2021-10-30 08:21 | Day surgery (SDC) | payer OTHER ==
[~2021-10-30] VITALS: Ht 177.8 cm; Wt 241.0 kg
--- NOTE | 2021-10-30 10:59 | NUR ---
10/30/21 1059 AARON GOODMAN RETURNED TO AT DC
== END 2021-10-30 10:58 | disposition home or self-care (01) ==
LOC: ORSCSDS 08:21
PROVIDERS: Ophthalmology
PROC: 08RJ3JZ Replacement of Right Lens with Synthetic Substitute, Percutaneous Approach (ICD-10-PCS; principal; 2021-10-30 10:00)
DX: H25.11 Age-related nuclear cataract, right eye (principal); H52.201 Unspecified astigmatism, right eye; H21.81 Floppy iris syndrome; I10 Essential (primary) hypertension; Z79.899 Other long term (current) drug therapy; Z86.73 Personal history of transient ischemic attack (TIA), and cerebral infarction without residual deficits; Z95.0 Presence of cardiac pacemaker; Z79.82 Long term (current) use of aspirin; E66.9 Obesity, unspecified; Z68.33 Body mass index [BMI] 33.0-33.9, adult
CPT/HCPCS: J2001; J2250; J3010; J3301; J7040; V2632

== ENCOUNTER 2021-11-22 08:27 | Day surgery (SDC) | payer OTHER ==
[~2021-11-22] VITALS: Ht 175.3 cm; Wt 110.9 kg
[2021-11-22] MEDS ORDERED: POTA10T (09:00)
[2021-11-22] MEDS ORDERED: HYDCHL50 (09:00)
[2021-11-22] MEDS ORDERED: Cardura Xl8 MG (09:01)
[2021-11-22] MEDS ORDERED: OXAYDO5 M3 (09:02)
--- NOTE | 2021-11-22 10:27 | NUR ---
11/22/21 1027 NICHOL FLOYD NOTED MEMORY ISSUES. ENCOURAGED TO COME IN FOR DC INSTRUCTIONS. HOWEVER, SHE INFORMED STAFF THAT SHE COULD JUST READ THE DC INSTRUCTIONS AND THAT SHE JUST PREFERRED TO MOVE THE CAR TO THE PICK- UP LOCATION. ALL INFORMATION RELAYED TO PATIENT.
== END 2021-11-22 10:30 | disposition home or self-care (01) ==
LOC: ORSCSDS 08:27
PROVIDERS: Ophthalmology
PROC: 08RK3JZ Replacement of Left Lens with Synthetic Substitute, Percutaneous Approach (ICD-10-PCS; principal; 2021-11-22 10:00)
DX: H25.12 Age-related nuclear cataract, left eye (principal); H52.202 Unspecified astigmatism, left eye; I10 Essential (primary) hypertension; G47.33 Obstructive sleep apnea (adult) (pediatric); Z86.73 Personal history of transient ischemic attack (TIA), and cerebral infarction without residual deficits; E66.9 Obesity, unspecified; Z68.36 Body mass index [BMI] 36.0-36.9, adult; Z79.899 Other long term (current) drug therapy; Z79.82 Long term (current) use of aspirin
CPT/HCPCS: J2001; J2250; J3010; J3301; J7040; V2632

== ENCOUNTER 2022-02-13 19:26 | Inpatient (IN) | payer OTHER ==
[~2022-02-13] VITALS: Ht 177.8 cm; Wt 105.7 kg
[~2022-02-13 19:26] MED LIST changes: +Cardura Xl8 MG PO; +Cymbalta20 MG PO; -DULO60 PO; +HYDCHL50; +LOSA50 PO; +OXAYDO5 M3; +POTA10T
[2022-02-13] MEDS ORDERED: FAMO20 PO (20:02)
[2022-02-13 20:05] LABS: BASOPHILS ABSOLUTE AUTO 0.04 K/mm3 (0.00-0.23); BASOPHILS PERCENT AUTO 1 % (0-2); EOSINOPHILS PERCENT AUTO 2 % (0-6); Hematocrit 43.7 % (37.0-53.0); Hemoglobin 15.2 g/dL (13.5-17.5); IMMATURE GRAN ABSOLUTE AUTO 0.02 K/mm3 (0.00-0.10); IMMATURE GRAN PERCENT AUTO 0 % (0-1); LYMPHOCYTES PERCENT AUTO 28 % (21-46); MONOCYTES ABSOLUTE AUTO 0.97 K/mm3 (0.16-1.47); MONOCYTES PERCENT AUTO 15 % (4-13); Mean Corpuscular HGB Conc 34.8 g/dL (31.5-36.5); Mean Corpuscular Volume 101 fL (80-100); NEUTROPHILS ABSOLUTE AUTO 3.57 K/mm3 (1.96-9.15); NEUTROPHILS PERCENT AUTO 55 % (41-73); Platelet Count 108 K/mm3 (150-400); RDW Coefficient Variation 12.4 % (11.7-14.2); RDW Standard Deviation 46.3 fL (35.1-46.3); Red Blood Cell Count 4.34 M/mm3 (4.30-5.90)
[2022-02-13 20:21] LABS: Albumin, Blood 3.7 g/dL (3.4-5.0); Bilirubin, Total 0.5 mg/dL (0.1-1.0); Bun/Creatinine Ratio 13.5 (12.0-20.0); Creatinine, Blood 0.82 mg/dL (0.60-1.20); Globulin, Blood 3.6 g/dL (2.2-4.0); Potassium, Blood 3.5 mmol/L (3.5-5.5); Total Protein, Blood 7.3 g/dL (6.4-8.2)
[2022-02-13 20:39] LABS: Source, Urine Clean Catch
[2022-02-13 20:43] LABS: Bilirubin, Urine Neg (Neg); Blood, Urine 1+ (Neg); Glucose Qualitative, Urine Neg (Neg); Ketones, Urine Neg (Neg); Leukocyte Esterase, Urine Neg (Neg); Nitrite, Urine Neg (Neg); Protein, Urine 1+ (Neg); Urobilinogen, Urine NORM (Normal)
[2022-02-13 20:59] LABS: Appearance, Urine Clear (Clear); Bacteria Not Seen /hpf; Color, Urine Yellow (P-Yellow); Squamous Epithelial Cells Rare /hpf (Few); White Blood Cells, Urine Not Seen /hpf (0-5)
[2022-02-13 21:02] LABS: Thyroid Stimulating Hormone 1.78 uIU/mL (0.360-4.800)
[2022-02-13 21:30] LABS: Influenza A, PCR NEGATIVE (NEGATIVE); Influenza B, PCR NEGATIVE (NEGATIVE); Resp Syncytial Virus, PCR NEGATIVE (NEGATIVE)
[2022-02-13 22:07] LABS: SARS-Cov-2 (COVID-19) PCR, MMC POSITIVE (NEGATIVE)
[2022-02-13 23:03] LABS: U Amphetamine Screen Not Detected; U Barbituate Screen Not Detected; U Benzodiazapine Screen Not Detected; U Buprenorphine Screen Not Detected; U Cannabinoids Screen Not Detected; U Cocaine Screen Not Detected; U Methadone Screen Not Detected; U Methamphetamine Screen Not Detected; U Opiates Screen Not Detected; U Oxycodone Screen DETECTED; U Phencyclidine Screen Not Detected; U Propoxyphene Screen Not Detected
[2022-02-14 06:19] LABS: BASOPHILS ABSOLUTE AUTO 0.03 K/mm3 (0.00-0.23); BASOPHILS PERCENT AUTO 1 % (0-2); EOSINOPHILS ABSOLUTE AUTO 0.03 K/mm3 (0.00-0.68); EOSINOPHILS PERCENT AUTO 1 % (0-6); Hematocrit 40.4 % (37.0-53.0); Hemoglobin 14.5 g/dL (13.5-17.5); IMMATURE GRAN ABSOLUTE AUTO 0.02 K/mm3 (0.00-0.10); IMMATURE GRAN PERCENT AUTO 0 % (0-1); LYMPHOCYTES ABSOLUTE AUTO 1.12 K/mm3 (0.84-5.20); LYMPHOCYTES PERCENT AUTO 19 % (21-46); MONOCYTES ABSOLUTE AUTO 0.78 K/mm3 (0.16-1.47); MONOCYTES PERCENT AUTO 13 % (4-13); Mean Corpuscular HGB 34.9 pg (26.0-34.0); Mean Corpuscular HGB Conc 35.9 g/dL (31.5-36.5); Mean Corpuscular Volume 97 fL (80-100); Mean Platelet Volume 9.2 fL (9.1-12.4); NEUTROPHILS ABSOLUTE AUTO 3.82 K/mm3 (1.96-9.15); NEUTROPHILS PERCENT AUTO 66 % (41-73); Platelet Count 108 K/mm3 (150-400); RDW Standard Deviation 43.2 fL (35.1-46.3); Red Blood Cell Count 4.15 M/mm3 (4.30-5.90)
[2022-02-14 06:45] LABS: Bun/Creatinine Ratio 13.4 (12.0-20.0); Calcium, Blood 8.6 mg/dL (8.5-10.1); Creatinine, Blood 0.75 mg/dL (0.60-1.20); Potassium, Blood 3.4 mmol/L (3.5-5.5)
--- NOTE | 2022-02-14 18:50 | NUR ---
SHIFT SUMMARY PT IS LETHARGIC. HE WAS GIVEN A SEROQUEL IN THE ED AND HAS BEEN LETHARGIC AND SLEEPY SINCE THEN. HE CANNOT FOLLOW DIRECTIONS, BUT OPENS HIS EYES AND GRUNTS. MEDS HELD AND MEAL HELD FOR SPEECH EVAL TOMORROW. CPAP ON. BED IN LOWEST POSITION AND CALL LIGHT IN REACH
--- NOTE | 2022-02-14 22:47 | NUR ---
TRANSFER PATIENT TRANSFERRED TO ROOM 353 DUE TO BEHAVIORS AND IMPULSIVE. PATIENT IS COVID +, MAINTAINIG SATS ABOVE 90% ON 2L. PATIENT TRANSFERRED AT 2140. PATIENT SETTLED INTO ROOM. PATIENT A&O X2, HX OF DEMENTIA. PATIENT ON CAMERA FOR FALL RISK AND SAFETY. PATIENT IRRITABLE, ATTEMPTED TO SWING AT FLEET ADMINISTRATIVE ASSISTANT DURING PERSONAL CARE. PATIENT WEARS CPAP, ON CONTINUOUS OUTSIDE THE ROOM.
[2022-02-15 04:59] LABS: Base Excess Venous 5.7 mmol/L; Bicarbonate Venous 28.2 mmol/L (24.0-30.0); PCO2 Venous 48.5 mmHg (38-42); pH Blood Venous 7.41 (7.34-7.37)
[2022-02-15 05:50] LABS: Bun/Creatinine Ratio 14.6 (12.0-20.0); Calcium, Blood 8.4 mg/dL (8.5-10.1); Creatinine, Blood 0.82 mg/dL (0.60-1.20); Potassium, Blood 3.3 mmol/L (3.5-5.5)
--- NOTE | 2022-02-15 06:33 | NUR ---
SHIFT SUMMARY PATIENT DENIES PAIN, NAUSEA, AND SHORTNESS OF BREATH. PATIENT IS ON BEDREST UNTIL PT EVAL. NURSING BEDSIDE SWALLOW EVAL DONE, PATIENT ASPIRATED ON WATER, FOOD AND MEDICATIONS. ST EVAL PLACED. PATIENT NPO UNTIL THEN. PATIENT ON 2L, SATURATING AT 96%. PATIENT REFUSED CPAP TONIGHT. PATIENT A&O 2-2, BUT VERY IRRITABLE. PATIENT GETS ANGRY WITH STAFF DOES ANY CARE WITH HIM. PATIENT ABLE TO BE REDIRECTED. PATIENT FOLLOWS DIRECTIONS. PATIENT CALL OUT, EDUCATED PROJECT COORDINATOR RN LIGHT USE, CONTINUES TO CALL OUT. PATIENT TOOK O2 OFF, SATURATING 87%. O2 REPLACED, PATIENT EDUCATED ON NEED FOR O2. PATIENT PARANOID, THINKS STAFF IS TRYING TO HURT HIM. PATIENT REASSURED.
--- NOTE | 2022-02-15 18:28 | NUR ---
SHIFT SUMMARY- PT HAS HAD NO ACUTE CHANGE T/O THE SHIFT. PT/OT ASSISTED HIM TO THE [facility] WHERE THE PT HAD A VERY LARGE SOFT FORMED BROWN STOOL. PT HAS HAD FREQUENT EPISODES OF BLADDER INCONTINENCE, 1-2 STAFF REQUIRED FOR CHANGES, PT IS ABLE TO FOLLOW INSTRUCTIONS, PT CAN BECOME AGRESSIVE WITH STAFF WHEN THEY ARE PERFORMING PERSONAL CARE (PER REPORT) HOWEVER THE PT HAS BEEN FAIRLY PLEASENT T/O THE SHIFT TODAY. PT CURRENTLY SITTING UP IN BED, CALL LIGHT IN REACH, NO S&S OF DISTRESS. HE WAS ASSISTED WITH DINNER WITH REMINDERS TO TUCK HIS CHIN WHEN HE SWALLOWS AND TO TAKE SMALL BITES. PER ST THE PT NEEDS MONITORING WITH MEALS FOR SAFETY. WILL CTM AND PASS ON TO NIGHT RN IN REPORT.
--- NOTE | 2022-02-16 04:53 | NUR ---
SHIFT SUMMARY NO ACUTE CHANGES OVERNIGHT. VSS. PT WAS ON 2L NASAL CANNULA AT THE BEGINNING OF SHIFT, THEN HE TOOK IT OFF AT SLEEP. PT'S SATS OVER 90% (UP TO 97%) ON ROOM AIR. INTERMITTENTLY DESATS AT SLEEP ON 83-89% BUT RECOVERS QUICKLY. PT REFUSE CPAP/BPAP FROM RESPIRATORY THERAPIST. INTERMITTNT WET COUGH. DENIES SOB AND CHEST PAIN. TOLERATING PO INTAKE. DENIES NAUSEA AND VOMITING. BT PRESENT PT HAD A [address] IN [address] DUE TO INCONTINENCE. USE BSC WITH 2 PERSON MODERATE ASSIST, NEEDING CONSTANT COACHING WHEN GETTING UP. CALL LIGHT WITHIN REACH. WILL CONTINUE TO MONITOR AND WILL PROVIDE REPORT TO ONCOMING NURSE.
--- NOTE | 2022-02-16 05:29 | NUR ---
SHIFT SUMMARY NO ACUTE CHANGES OVERNIGHT. HYPERTENSIVE THIS MORNING. PT WAS ON 2L NASAL CANNULA. PT'S SATS OVER 90% (UP TO 97%). INTERMITTENTLY DESATS AT SLEEP ON 83-89% BUT RECOVERS QUICKLY. PT REFUSE CPAP/BPAP FROM RESPIRATORY THERAPIST. INTERMITTNT WET COUGH. DENIES SOB AND CHEST PAIN. TOLERATING PO INTAKE. DENIES NAUSEA AND VOMITING. BT PRESENT PT HAD A [address] IN [address] DUE TO INCONTINENCE. USE BSC WITH 2 PERSON MODERATE ASSIST, NEEDING CONSTANT COACHING WHEN GETTING UP. CALL LIGHT WITHIN REACH. WILL CONTINUE TO MONITOR AND WILL PROVIDE REPORT TO ONCOMING NURSE.
--- NOTE | 2022-02-16 16:58 | NUR ---
SHIFT SUMMARY PT RESTING QUIETLY AT START OF SHIFT, WOKE EASILY FOR CARE. PT HAS BEEN PLEASANT AND CO-OP WITH CARE TO PRESENT TODAY. REQUIRES ASSIST FOR NEEDS. INCONTINENT OF BOWEL AND BLADDER. CLEARED BY SPEECH TO CONTINUE WITH SOFT DIET. WAS ON 2L O2 DURING THE NIGHT D/T REFUSING TO WEAR CPAP, BUT HAS REMAINED ON RA TO PRESENT DURING THE DAY. DR LOWE IN TO SEE PT THIS AM. NO NEW ORDERS. PT WAITING FOR ORNAMENT STAPLER TO ASSIST WITH D/C PLAN PT'S IS SICK WITH COVID WELL AND UNABLE TO CARE FOR PT. PT MEDICATED FOR C/O THROAT AND BACK PAIN THIS AM. NO FURTHER C/O TO PRESENT. PT ABLE TO WORK WITH PT/OT AND GET UP TO BSC AND LATER TO SIT IN CHAIR AT BS. PT IS CONFUSED AND DISORIENTED, BUT ABLE TO MAKE NEEDS KNOWN. CALL LT IN REACH.
[2022-02-17 06:10] LABS: Bun/Creatinine Ratio 21.1 (12.0-20.0); Calcium, Blood 8.4 mg/dL (8.5-10.1); Creatinine, Blood 0.95 mg/dL (0.60-1.20); Potassium, Blood 3.7 mmol/L (3.5-5.5)
--- NOTE | 2022-02-17 06:41 | NUR ---
SHIFT SUMMARY NO ACUTE CHANGES OVERNIGHT. PT AOX2. CALM AND PLEASANTLY CONFUSE. REFUSE MALOX AT MIDNIGHT AND THIS MORNING. PT ON ROOM AIR AT THE BEGINNING OF SHIFT, SAT ON LOW 90'S. CPAP AT NIGHT. PT HAS COARSE LUNG SOUNDS. INTERMITTENTLY COUGHING. ENC DEEP BREATHING EXERCISE AND USE OF I/S. VOIDING, INCONTINENT. ATTENDS IN PLACE. CALL LIGHT WITHIN REACH. WILL CONTINUE TO MONITOR AND WILL PROVIDE REPORT TO ONCOMING NURSE.
--- NOTE | 2022-02-17 17:17 | NUR ---
SHIFT SUMMARY PT SLEEPING AT START OF SHIFT, ON CPAP; BIOX AT 95-99%. PT VERY GRUMPY AND DID NOT WANT TO BE WOKE UP FOR BREAKFAST RIGHT AWAY. PT LATER WOKE UP AND TOOK CPAP OFF, BUT REMAINED IRRITABLE AND VERY GRUMPY THRU OUT THE DAY TODAY. ATE AND DRANK WELL. TOOK MEDS W/O DIFFICULTY. INCONTINENT OF BLADDER; WILL SOMETIMES REQUEST URINAL AFTER HE HAS VOIDED IN ATTENDS. REMAINS CONFUSED AND DISORIENTED. ATTEMPTED TO CALL HIS WITH ASSISTANCE; PT LEFT MESSAGE. CALL LT IN REACH, ABLE TO MAKE NEEDS KNOWN.
--- NOTE | 2022-02-18 05:03 | NUR ---
SHIFT SUMMARY 81 YR M ADMITTED ON 02/14/22 FOR EVALUATION FROM PT/OT AFTER SUFFERING FROM WEAKNESS/SOB DUE TO COVID. FULL CODE. NO ACUTE CHANGES THIS SHIFT. RT APPLIED PT'S CPAP FOR HIM BUT AFTER A FEW HOURS HE REFUSED TO WEAR IT ANYMORE. HE TOOK IT OFF SEVERAL TIMES AND IT WAS PUT BACK ON BUT HE FINALLY REFUSED TO WEAR IT AT ALL. THIS A.M. PT C/O STUFFY NOSE. WILL SPEAK W/ DAYSHIFT NURSE ABOUT SPEAKING W/ DOC. HE WAS ONLY GRUMPY A COUPLE OF TIMES AND THIS NURSE FOUND THAT WHEN HE DOES GET GRUMPY HE IS EASILY REDIRECTED AND WILL LAUGH AT SILLY JOKES. HE LIKES TO HANG HIS FEET OFF THE EDGE OF THE BED BUT MADE NO ATTEMPTS TO GET UP UNSUPERVISED.
--- NOTE | 2022-02-18 18:37 | NUR ---
SHIFT SUMMARY PATIENT CONFUSED AND SOMETIMES GRUMPY THROUGHOUT SHIFT. TOLERATING REGULAR DIET AND LIQUIDS. INCONTINENT OF BOWEL AND BLADDER. ATTENDS IN PLACE. 2 PERSON MOD ASSIST WITH FWW AND GAIT BELT UP TO COMMODE. MEDICATED FOR CHRONIC LEFT SHOULDER AND BACK PAIN WITH PO MEDS PRN. SEE EMAR. MARI SOLORIO, RA, DENIES SOB. PLAN TO DISCHARGE TO HOME HEALTH OR SNF, DEPENDING ON SPOUSE SITUATION. HER NAME IS JESSICA AND SHE ALSO HAS COVID AND IS AT HOME. SPOKE WITH HER ON PHONE TODAY AND SHE REPORT SHE IS VERY ILL AND UNABLE TO CARE FOR HER AT THIS TIME.
--- NOTE | 2022-02-19 05:07 | NUR ---
SHIFT SUMMARY 81 YR M ADMITTED ON 02/12/22 FOR PT/OT EVALUATION AFTER WEAKNESS DUE TO COVID. FULL CODE. NO ACUTE CHANGES THIS SHIFT. HE IS IRRITABLE WHEN CARE IS PROVIDED BUT HE LIKES TO CONVERSATE. HE LOSES HIS TRAIN OF THOUGHT VERY QUICKLY AND SOMETIMES SEEMS CONFUSED TO WHY I AM LOOKING AT HIM. HE HAS TO CONSTANTLY BE REDIRECTED WITH ANY TYPE OF TASK. HE TALKS ALOT ABOUT HIS COMING TO VISIT BUT HE DOES NOT SEEM TO UNDERSTAND THAT SHE IS SICK WELL.
[2022-02-19] MEDS ORDERED: SEROQUEL25 MG PO (12:35)
[2022-02-19] MEDS ORDERED: Amlodipine Bes2.5 MG PO (12:36)
[2022-02-19] MEDS ORDERED: ROPI.25 PO (12:37)
--- NOTE | 2022-02-19 13:15 | NUR ---
DISCHARGE MEDICATIONS THIS RN DISCUSSED PT'S DISCHARGE ORDERS WITH DR. VALDEZ. DR. VALDEZ ORDERED VITAMIN D TO BE STOPPED AND CYMBALTA TO BE 20 MG EVERY OTHER DAY AND THEN STOP. THESE CHANGES HAVE BEEN WRITTEN FOR PT AND FAXED TO HIS PHARMACY.
--- NOTE | 2022-02-19 14:05 | NUR ---
DISCHARGE 1400 PATIENT WAS DISCHARGED TO HOME WITH CAREGIVER. PATIENT SIGNED HIS NAME "YOUR NAME" ON THE DISCHARGE PAPERWORK, AND SAID "WELL THAT IS WHAT YOU TOLD ME TO WIRTE". THE CAREGIVER DID NOT WANT TO COME INTO THE FACILITY, SO THIS MANAGER PEOPLE CALLED HER TO GO OVER PAPERWORK, AND SHE ASKED THAT I JUST SEND A COPY OUT WITH THE PATIENT SO THAT SHE COULD READ IT. "SHERIE" IS THE CAREGIVER WHO IS PICKING UP THIS PATIENT. PATIENT DID NOT HAVE AN IV IN THE LEFT HAND OR ANYWHERE THAT COULD BE FOUND TO DISCONTINUE. HE IS UNABLE TO FULLY UNDERSTAND THE DISCHARGE INSTRUCTION SO WE WILL RELY ON THE CAREGIVER TO DO SO. HE WAS DRESSED, AND THEN STAFF WHEELED HIM OUT WHERE MAMIROD WAS WAITING FOR HIM IN HER VEHICLE.
--- NOTE | 2022-02-19 14:20 | NUR ---
THE [employer] PROVIDED WHEEL CHAIR TRANSPORT OUT TO MEET THE PATE[employer]TS CAREGIVER DURING DISCHARGE. ONCE OUTSIDE, THE PATIENT WOULD NOT COOPERATE WITH THE [employer] WHEN THEY WERE ASKING HIM TO STAND, SO THEY COULD ASSIST HIM INTO THE CAREGIVERS VEHICLE. THE CAREGIVER WAS SAID TO APPEAR UPSET AND TOLD THE [employer] THAT SHE DID NOT WANT THEIR HELP, SHE SAID THAT SHE WOULD TAKE CARE OF IT HERSELF. THE [employer] ATTEMPTED TO CALL ON YUN, THIS FLOWER STRIPPER, BUT THIS FLOWER STRIPPER WAS UNAVAILABLE BY YUN. THE [employer] CALLED THE CHARGE NURSE, AND THE CHARGE NURSE STATED THAT IF THE PATIENTS PRIMARY CARE PROVIDER DOES NOT WANT THIER ASSISTANCE, THEY DID NOT NEED TO ASSIST. CAREGIVER THEN BEGAN TO ASSIST THE PATIENT WHILE THE [employer] RETURNED TO THE SCU.
== END 2022-02-19 14:07 | disposition home health service (06) | DRG 178 ==
LOC: ER 19:26 → ERHOLD 02-14 00:32 → MEDS 02-14 15:21
PROVIDERS: Emergency Medicine; Family Medicine; Internal Medicine; Student in an Organized Health Care Education/Training Program; ADMIT Internal Medicine
PROC: 5A09357 Assistance with Respiratory Ventilation, Less than 24 Consecutive Hours, Continuous Positive Airway Pressure (ICD-10-PCS; principal; 2022-02-14)
PROC: 8E0ZXY6 Isolation (ICD-10-PCS; 2022-02-14)
DX: U07.1 COVID-19 (principal); F01.51 Vascular dementia, unspecified severity, with behavioral disturbance; R53.1 Weakness; G47.33 Obstructive sleep apnea (adult) (pediatric); I10 Essential (primary) hypertension; Z09 Encounter for follow-up examination after completed treatment for conditions other than malignant neoplasm; J44.9 Chronic obstructive pulmonary disease, unspecified; N40.0 Benign prostatic hyperplasia without lower urinary tract symptoms; G25.81 Restless legs syndrome; I25.10 Atherosclerotic heart disease of native coronary artery without angina pectoris; M19.90 Unspecified osteoarthritis, unspecified site; Z96.611 Presence of right artificial shoulder joint; Z95.0 Presence of cardiac pacemaker; Z95.2 Presence of prosthetic heart valve; Z87.891 Personal history of nicotine dependence; Z88.8 Allergy status to other drugs, medicaments and biological substances; Z88.5 Allergy status to narcotic agent; Z79.899 Other long term (current) drug therapy; Z79.82 Long term (current) use of aspirin; Z78.9 Other specified health status
CPT/HCPCS: 0241U; 36415; 70450; 71045; 80048; 80053; 81001; 82803; 84132; 84443; 85025; 92526; 92610; 93005; 93010; 94660; 94762; 96372-59; 96374; 97116; 97162; 97166; 97530; 97535; 99285-25; A9270; G0480; J1650; J2405

== ENCOUNTER 2022-05-31 22:53 | Emergency (ER) | payer OTHER ==
[~2022-05-31] VITALS: Ht 182.9 cm; Wt 109.3 kg
[~2022-05-31 22:53] MED LIST changes: +Amlodipine Bes2.5 MG PO; +FAMO20 PO; +ROPI.25 PO; +SEROQUEL25 MG PO
== END 2022-06-01 04:20 | disposition home or self-care (01) ==
LOC: ER 22:53
DX: S30.0XXA Contusion of lower back and pelvis, initial encounter (principal); W01.198A Fall on same level from slipping, tripping and stumbling with subsequent striking against other object, initial encounter; I10 Essential (primary) hypertension; I25.10 Atherosclerotic heart disease of native coronary artery without angina pectoris; Z88.5 Allergy status to narcotic agent; Z88.6 Allergy status to analgesic agent; Z88.8 Allergy status to other drugs, medicaments and biological substances; Z79.899 Other long term (current) drug therapy; Z79.82 Long term (current) use of aspirin; Z87.891 Personal history of nicotine dependence
CPT/HCPCS: 74176

== ENCOUNTER 2023-04-18 16:55 | Emergency (ER) | payer OTHER ==
[~2023-04-18] VITALS: Ht 175.3 cm; Wt 109.3 kg
[2023-04-18 17:10] VITALS: BP 136/82
== END 2023-04-18 21:41 | disposition home or self-care (01) ==
LOC: ER 16:55
DX: S70.02XA Contusion of left hip, initial encounter (principal); R51.9 Headache, unspecified; Z88.8 Allergy status to other drugs, medicaments and biological substances; Z88.5 Allergy status to narcotic agent; Z79.899 Other long term (current) drug therapy; Z79.82 Long term (current) use of aspirin; Z87.891 Personal history of nicotine dependence; I10 Essential (primary) hypertension; G47.30 Sleep apnea, unspecified; I25.10 Atherosclerotic heart disease of native coronary artery without angina pectoris; M19.90 Unspecified osteoarthritis, unspecified site; W19.XXXA Unspecified fall, initial encounter
CPT/HCPCS: 73502; 99283-25

== ENCOUNTER 2023-07-04 08:40 | Emergency (ER) | payer OTHER ==
[~2023-07-04] VITALS: Ht 177.8 cm; Wt 108.4 kg
[2023-07-04] MEDS ORDERED: DULO60 PO (09:20)
[2023-07-04] MEDS ORDERED: POTCHL20ER PO (09:21)
[2023-07-04] MEDS ORDERED: HYDCHL25 PO (09:21)
[2023-07-04] MEDS ORDERED: DOCU100 PO (09:22)
[2023-07-04] MEDS ORDERED: OXYC5 PO (09:22)
[2023-07-04] MEDS ORDERED: ACET500 PO (09:23)
[2023-07-04] MEDS ORDERED: MYRBETRIQ25 MG PO (09:24)
[2023-07-04] MEDS ORDERED: ATOR40TA PO (09:26)
[2023-07-04 11:49] VITALS: BP 160/104
== END 2023-07-04 11:47 | disposition home or self-care (01) ==
LOC: ER 08:40
DX: R07.81 Pleurodynia (principal); M79.601 Pain in right arm; M79.602 Pain in left arm; W18.30XA Fall on same level, unspecified, initial encounter; Z88.8 Allergy status to other drugs, medicaments and biological substances; Z88.5 Allergy status to narcotic agent; Z79.899 Other long term (current) drug therapy; Z79.82 Long term (current) use of aspirin; Z87.891 Personal history of nicotine dependence
CPT/HCPCS: 70450; 71046; 72125

== ENCOUNTER 2023-07-18 07:32 | Emergency (ER) | payer OTHER ==
[~2023-07-18] VITALS: Ht 175.3 cm; Wt 99.8 kg
[~2023-07-18 07:32] MED LIST changes: +ACET500 PO; +DULO60 PO; +MYRBETRIQ25 MG PO; +OXYC5 PO; +POTCHL20ER PO
[2023-07-18 08:22] LABS: BASOPHILS ABSOLUTE AUTO 0.05 K/mm3 (0.00-0.23); BASOPHILS PERCENT AUTO 1 % (0-2); EOSINOPHILS ABSOLUTE AUTO 0.08 K/mm3 (0.00-0.68); EOSINOPHILS PERCENT AUTO 1 % (0-6); Hematocrit 37.7 % (37.0-53.0); Hemoglobin 13.5 g/dL (13.5-17.5); IMMATURE GRAN ABSOLUTE AUTO 0.01 K/mm3 (0.00-0.10); IMMATURE GRAN PERCENT AUTO 0 % (0-1); LYMPHOCYTES ABSOLUTE AUTO 1.71 K/mm3 (0.84-5.20); LYMPHOCYTES PERCENT AUTO 24 % (21-46); MONOCYTES ABSOLUTE AUTO 0.72 K/mm3 (0.16-1.47); MONOCYTES PERCENT AUTO 10 % (4-13); Mean Corpuscular HGB 35.4 pg (26.0-34.0); Mean Corpuscular HGB Conc 35.8 g/dL (31.5-36.5); Mean Corpuscular Volume 99 fL (80-100); Mean Platelet Volume 9.3 fL (9.1-12.4); NEUTROPHILS ABSOLUTE AUTO 4.72 K/mm3 (1.96-9.15); NEUTROPHILS PERCENT AUTO 65 % (41-73); Platelet Count 128 K/mm3 (150-400); RDW Coefficient Variation 12.3 % (11.7-14.2); RDW Standard Deviation 45.1 fL (35.1-46.3); Red Blood Cell Count 3.81 M/mm3 (4.30-5.90); White Blood Cell Count 7.29 K/mm3 (4.00-11.30)
[2023-07-18 08:33] LABS: Calcium, Blood 8.8 mg/dL (8.5-10.1); Creatinine, Blood 0.74 mg/dL (0.60-1.20); Potassium, Blood 4.3 mmol/L (3.5-5.5)
[2023-07-18 09:54] VITALS: BP 153/95
== END 2023-07-18 10:37 | disposition home or self-care (01) ==
LOC: ER 07:32
PROVIDERS: Emergency Medicine
DX: I10 Essential (primary) hypertension (principal); Z88.8 Allergy status to other drugs, medicaments and biological substances; Z88.5 Allergy status to narcotic agent; Z79.899 Other long term (current) drug therapy; Z79.82 Long term (current) use of aspirin; G47.30 Sleep apnea, unspecified; I25.10 Atherosclerotic heart disease of native coronary artery without angina pectoris; Z87.891 Personal history of nicotine dependence
CPT/HCPCS: 80048; 85025; 93005; 93010; 99284-25

== ENCOUNTER 2024-02-02 19:14 | Emergency (ER) | payer OTHER ==
[~2024-02-02] VITALS: Ht 180.3 cm; Wt 108.4 kg
[2024-02-02 21:30] VITALS: BP 168/94
== END 2024-02-02 21:58 | disposition home or self-care (01) ==
LOC: ER 19:14
DX: M25.551 Pain in right hip (principal); W18.30XA Fall on same level, unspecified, initial encounter; F01.50 Vascular dementia, unspecified severity, without behavioral disturbance, psychotic disturbance, mood disturbance, and anxiety; I10 Essential (primary) hypertension; I25.10 Atherosclerotic heart disease of native coronary artery without angina pectoris; Z87.891 Personal history of nicotine dependence; Z88.5 Allergy status to narcotic agent; Z88.8 Allergy status to other drugs, medicaments and biological substances; Z79.899 Other long term (current) drug therapy; Z79.82 Long term (current) use of aspirin; Z95.0 Presence of cardiac pacemaker
CPT/HCPCS: 73502

== ENCOUNTER 2024-02-05 22:16 | Emergency (ER) | payer OTHER ==
[~2024-02-05] VITALS: Ht 177.8 cm; Wt 108.4 kg
[2024-02-05 22:32] LABS: BASOPHILS ABSOLUTE AUTO 0.04 K/mm3 (0.00-0.23); BASOPHILS PERCENT AUTO 1 % (0-2); EOSINOPHILS ABSOLUTE AUTO 0.31 K/mm3 (0.00-0.68); EOSINOPHILS PERCENT AUTO 4 % (0-6); Hemoglobin 14.3 g/dL (13.5-17.5); IMMATURE GRAN ABSOLUTE AUTO 0.02 K/mm3 (0.00-0.10); IMMATURE GRAN PERCENT AUTO 0 % (0-1); LYMPHOCYTES PERCENT AUTO 51 % (21-46); MONOCYTES PERCENT AUTO 8 % (4-13); Mean Corpuscular HGB Conc 35.8 g/dL (31.5-36.5); Mean Corpuscular Volume 98 fL (80-100); Mean Platelet Volume 8.9 fL (9.1-12.4); NEUTROPHILS ABSOLUTE AUTO 2.84 K/mm3 (1.96-9.15); NEUTROPHILS PERCENT AUTO 37 % (41-73); Platelet Count 145 K/mm3 (150-400); RDW Coefficient Variation 12.5 % (11.7-14.2); RDW Standard Deviation 45.1 fL (35.1-46.3); Red Blood Cell Count 4.09 M/mm3 (4.30-5.90); White Blood Cell Count 7.71 K/mm3 (4.00-11.30)
[2024-02-05] MEDS ORDERED: Ondansetron HCl 2 MG / ML 2ML Vial IV ONE (22:45)
[2024-02-05 22:59] LABS: Albumin, Blood 3.8 g/dL (3.4-5.0); Bilirubin, Total 0.4 mg/dL (0.1-1.0); Bun/Creatinine Ratio 15.6 (12.0-20.0); Calcium, Blood 9.3 mg/dL (8.5-10.1); Creatinine, Blood 0.83 mg/dL (0.60-1.20); Potassium, Blood 3.2 mmol/L (3.5-5.5); Total Protein, Blood 7.8 g/dL (6.4-8.2)
[2024-02-06] MEDS ORDERED: Loperamide HCl 2 MG Cap PO ONE (00:25)
[2024-02-06] MEDS ORDERED: NS 500 ML IV SCH (00:45)
[2024-02-06 06:18] VITALS: BP 138/70
== END 2024-02-06 06:18 | disposition home or self-care (01) ==
LOC: ER 22:16
PROVIDERS: Emergency Medicine
DX: R11.2 Nausea with vomiting, unspecified (principal); R19.7 Diarrhea, unspecified; R10.9 Unspecified abdominal pain; I10 Essential (primary) hypertension; G47.30 Sleep apnea, unspecified; Z88.8 Allergy status to other drugs, medicaments and biological substances; Z88.5 Allergy status to narcotic agent; Z79.899 Other long term (current) drug therapy; Z79.82 Long term (current) use of aspirin; Z87.891 Personal history of nicotine dependence
CPT/HCPCS: 74177; 80053; 83690; 83735; 84484; 85025; 93005; 93010; 96361; 96374; 99284-25; A9270; J2405; J7030; Q9967

== ENCOUNTER 2024-03-17 13:43 | Emergency (ER) | payer MEDICARE, BC ==
[~2024-03-17] VITALS: Ht 177.8 cm; Wt 90.7 kg
[2024-03-17 13:51] VITALS: BP 136/87
== END 2024-03-17 15:23 | disposition home or self-care (01) ==
LOC: ER 13:43
DX: M54.2 Cervicalgia (principal); W18.30XA Fall on same level, unspecified, initial encounter; M25.511 Pain in right shoulder; G89.29 Other chronic pain; Z88.8 Allergy status to other drugs, medicaments and biological substances; Z88.5 Allergy status to narcotic agent; Z79.899 Other long term (current) drug therapy; Z79.82 Long term (current) use of aspirin; I10 Essential (primary) hypertension; G47.30 Sleep apnea, unspecified; M19.90 Unspecified osteoarthritis, unspecified site
CPT/HCPCS: 70450; 72125; 99284-25

== ENCOUNTER 2024-06-11 08:39 | Emergency (ER) | payer MEDICARE, BC ==
[~2024-06-11] VITALS: Ht 177.8 cm; Wt 108.9 kg
[2024-06-11 09:11] VITALS: BP 143/75
== END 2024-06-11 11:53 | disposition home or self-care (01) ==
LOC: ER 08:39
DX: S09.90XA Unspecified injury of head, initial encounter (principal); I10 Essential (primary) hypertension; G47.30 Sleep apnea, unspecified; W22.01XA Walked into wall, initial encounter; Z86.73 Personal history of transient ischemic attack (TIA), and cerebral infarction without residual deficits; Z79.82 Long term (current) use of aspirin; Z79.899 Other long term (current) drug therapy; Z88.5 Allergy status to narcotic agent; Z88.8 Allergy status to other drugs, medicaments and biological substances
CPT/HCPCS: 70450; 72125; 99284-25

== ENCOUNTER 2024-06-19 11:58 | Emergency (ER) | payer MEDICARE, BC ==
[~2024-06-19] VITALS: Ht 175.3 cm; Wt 154.7 kg
[2024-06-19 12:32] LABS: BASOPHILS ABSOLUTE AUTO 0.04 K/mm3 (0.00-0.23); BASOPHILS PERCENT AUTO 1 % (0-2); EOSINOPHILS ABSOLUTE AUTO 0.16 K/mm3 (0.00-0.68); EOSINOPHILS PERCENT AUTO 2 % (0-6); Hematocrit 36.2 % (37.0-53.0); IMMATURE GRAN ABSOLUTE AUTO 0.01 K/mm3 (0.00-0.10); IMMATURE GRAN PERCENT AUTO 0 % (0-1); LYMPHOCYTES PERCENT AUTO 32 % (21-46); MONOCYTES ABSOLUTE AUTO 0.46 K/mm3 (0.16-1.47); MONOCYTES PERCENT AUTO 7 % (4-13); Mean Corpuscular HGB 35.9 pg (26.0-34.0); Mean Corpuscular HGB Conc 35.9 g/dL (31.5-36.5); Mean Corpuscular Volume 100 fL (80-100); Mean Platelet Volume 9.7 fL (9.1-12.4); NEUTROPHILS ABSOLUTE AUTO 3.91 K/mm3 (1.96-9.15); NEUTROPHILS PERCENT AUTO 58 % (41-73); Platelet Count 144 K/mm3 (150-400); RDW Coefficient Variation 12.2 % (11.7-14.2); RDW Standard Deviation 44.3 fL (35.1-46.3); Red Blood Cell Count 3.62 M/mm3 (4.30-5.90); White Blood Cell Count 6.78 K/mm3 (4.00-11.30)
[2024-06-19 12:42] LABS: Albumin, Blood 3.3 g/dL (3.4-5.0); Albumin/Globulin Ratio 0.9 (0.8-1.8); Bilirubin, Total 0.4 mg/dL (0.1-1.0); Bun/Creatinine Ratio 13.3 (12.0-20.0); Calcium, Blood 8.6 mg/dL (8.5-10.1); Creatinine, Blood 0.82 mg/dL (0.60-1.20); Globulin, Blood 3.6 g/dL (2.2-4.0); Potassium, Blood 4.3 mmol/L (3.5-5.5); Total Protein, Blood 6.9 g/dL (6.4-8.2)
[2024-06-19 15:41] VITALS: BP 122/79
== END 2024-06-19 15:44 | disposition home or self-care (01) ==
LOC: ER 11:58
PROVIDERS: Student in an Organized Health Care Education/Training Program
DX: R07.9 Chest pain, unspecified (principal); Z79.82 Long term (current) use of aspirin; Z79.899 Other long term (current) drug therapy; Z88.5 Allergy status to narcotic agent; Z88.8 Allergy status to other drugs, medicaments and biological substances
CPT/HCPCS: 71046; 80053; 83690; 84484; 85025; 93005; 93010; 99285-25

== ENCOUNTER 2024-08-23 19:19 | Emergency (ER) | payer MEDICARE, BC ==
[~2024-08-23] VITALS: Ht 177.8 cm; Wt 109.3 kg
[2024-08-23 19:53] LABS: BASOPHILS ABSOLUTE AUTO 0.05 K/mm3 (0.00-0.23); BASOPHILS PERCENT AUTO 1 % (0-2); EOSINOPHILS ABSOLUTE AUTO 0.21 K/mm3 (0.00-0.68); EOSINOPHILS PERCENT AUTO 3 % (0-6); Hemoglobin 13.8 g/dL (13.5-17.5); IMMATURE GRAN ABSOLUTE AUTO 0.04 K/mm3 (0.00-0.10); IMMATURE GRAN PERCENT AUTO 1 % (0-1); LYMPHOCYTES ABSOLUTE AUTO 2.64 K/mm3 (0.84-5.20); LYMPHOCYTES PERCENT AUTO 38 % (21-46); MONOCYTES ABSOLUTE AUTO 0.57 K/mm3 (0.16-1.47); MONOCYTES PERCENT AUTO 8 % (4-13); Mean Corpuscular HGB 35.5 pg (26.0-34.0); Mean Corpuscular HGB Conc 35.4 g/dL (31.5-36.5); Mean Corpuscular Volume 100 fL (80-100); NEUTROPHILS ABSOLUTE AUTO 3.42 K/mm3 (1.96-9.15); NEUTROPHILS PERCENT AUTO 49 % (41-73); Platelet Count 138 K/mm3 (150-400); RDW Coefficient Variation 12.4 % (11.7-14.2); RDW Standard Deviation 46.1 fL (35.1-46.3); Red Blood Cell Count 3.89 M/mm3 (4.30-5.90); White Blood Cell Count 6.93 K/mm3 (4.00-11.30)
[2024-08-23 20:07] LABS: Albumin, Blood 3.6 g/dL (3.4-5.0); Albumin/Globulin Ratio 0.9 (0.8-1.8); Bilirubin, Total 0.4 mg/dL (0.1-1.0); Bun/Creatinine Ratio 15.7 (12.0-20.0); Creatinine, Blood 0.95 mg/dL (0.60-1.20); Globulin, Blood 3.8 g/dL (2.2-4.0); Potassium, Blood 3.6 mmol/L (3.5-5.5); Total Protein, Blood 7.4 g/dL (6.4-8.2)
[2024-08-23 20:30] VITALS: BP 143/108
== END 2024-08-23 21:40 | disposition home or self-care (01) ==
LOC: ER 19:19
PROVIDERS: Student in an Organized Health Care Education/Training Program
DX: R55 Syncope and collapse (principal); S61.411A Laceration without foreign body of right hand, initial encounter; I10 Essential (primary) hypertension; I25.10 Atherosclerotic heart disease of native coronary artery without angina pectoris; N40.0 Benign prostatic hyperplasia without lower urinary tract symptoms; F01.50 Vascular dementia, unspecified severity, without behavioral disturbance, psychotic disturbance, mood disturbance, and anxiety; G47.30 Sleep apnea, unspecified; G25.81 Restless legs syndrome; Z86.73 Personal history of transient ischemic attack (TIA), and cerebral infarction without residual deficits; Z88.5 Allergy status to narcotic agent; Z88.8 Allergy status to other drugs, medicaments and biological substances; Z79.82 Long term (current) use of aspirin; Z79.899 Other long term (current) drug therapy; W19.XXXA Unspecified fall, initial encounter
CPT/HCPCS: 70450; 80053; 85025; 93005; 93010; 99284-25

== ENCOUNTER 2024-09-10 20:35 | Emergency (ER) | payer MEDICARE, BC ==
[~2024-09-10] VITALS: Ht 185.4 cm; Wt 122.5 kg
[2024-09-11 00:58] VITALS: BP 154/100
== END 2024-09-11 01:53 | disposition home or self-care (01) ==
LOC: ER 20:35
DX: S00.03XA Contusion of scalp, initial encounter (principal); M25.562 Pain in left knee; M25.561 Pain in right knee; I10 Essential (primary) hypertension; G47.30 Sleep apnea, unspecified; W07.XXXA Fall from chair, initial encounter; Z87.891 Personal history of nicotine dependence; Z86.73 Personal history of transient ischemic attack (TIA), and cerebral infarction without residual deficits; Z79.82 Long term (current) use of aspirin; Z79.899 Other long term (current) drug therapy; Z88.5 Allergy status to narcotic agent; Z88.8 Allergy status to other drugs, medicaments and biological substances
CPT/HCPCS: 70450; 71046; 72125; 72170; 73560-LT; 73560-RT; 93005; 93010; 99284-25

== ENCOUNTER 2024-09-22 14:07 | Emergency (ER) | payer OTHER, MEDICARE, BC ==
[~2024-09-22] VITALS: Ht 172.7 cm; Wt 104.3 kg
[2024-09-22] MEDS ORDERED: Acetaminophen 500 MG Tab PO ONE (20:45)
[2024-09-23] MEDS ORDERED: QUEtiapine Fumarate 25 MG Tab PO ONE (00:05)
[2024-09-23] MEDS ORDERED: Acetaminophen 325 MG TABLET PO ONE (05:20)
[2024-09-23 08:30] LABS: BASOPHILS ABSOLUTE AUTO 0.03 K/mm3 (0.00-0.23); BASOPHILS PERCENT AUTO 0 % (0-2); EOSINOPHILS ABSOLUTE AUTO 0.14 K/mm3 (0.00-0.68); EOSINOPHILS PERCENT AUTO 2 % (0-6); Hematocrit 37.7 % (37.0-53.0); Hemoglobin 13.6 g/dL (13.5-17.5); IMMATURE GRAN ABSOLUTE AUTO 0.02 K/mm3 (0.00-0.10); IMMATURE GRAN PERCENT AUTO 0 % (0-1); LYMPHOCYTES ABSOLUTE AUTO 2.17 K/mm3 (0.84-5.20); LYMPHOCYTES PERCENT AUTO 28 % (21-46); MONOCYTES ABSOLUTE AUTO 0.66 K/mm3 (0.16-1.47); MONOCYTES PERCENT AUTO 8 % (4-13); Mean Corpuscular HGB 35.7 pg (26.0-34.0); Mean Corpuscular HGB Conc 36.1 g/dL (31.5-36.5); Mean Corpuscular Volume 99 fL (80-100); Mean Platelet Volume 9.2 fL (9.1-12.4); NEUTROPHILS ABSOLUTE AUTO 4.82 K/mm3 (1.96-9.15); NEUTROPHILS PERCENT AUTO 61 % (41-73); Platelet Count 143 K/mm3 (150-400); RDW Coefficient Variation 12.3 % (11.7-14.2); RDW Standard Deviation 44.6 fL (35.1-46.3); Red Blood Cell Count 3.81 M/mm3 (4.30-5.90); White Blood Cell Count 7.84 K/mm3 (4.00-11.30)
[2024-09-23 08:50] LABS: Albumin, Blood 3.2 g/dL (3.4-5.0); Albumin/Globulin Ratio 0.9 (0.8-1.8); Bilirubin, Total 0.5 mg/dL (0.1-1.0); Bun/Creatinine Ratio 19.7 (12.0-20.0); Calcium, Blood 8.4 mg/dL (8.5-10.1); Creatinine, Blood 0.71 mg/dL (0.60-1.20); Globulin, Blood 3.6 g/dL (2.2-4.0); Potassium, Blood 3.4 mmol/L (3.5-5.5); Total Protein, Blood 6.8 g/dL (6.4-8.2)
[2024-09-23 15:02] VITALS: BP 167/102
== END 2024-09-23 15:10 | disposition home or self-care (01) ==
LOC: ER 14:07
PROVIDERS: Emergency Medicine
DX: S02.2XXA Fracture of nasal bones, initial encounter for closed fracture (principal); W01.0XXA Fall on same level from slipping, tripping and stumbling without subsequent striking against object, initial encounter; F01.50 Vascular dementia, unspecified severity, without behavioral disturbance, psychotic disturbance, mood disturbance, and anxiety; I10 Essential (primary) hypertension; I25.10 Atherosclerotic heart disease of native coronary artery without angina pectoris; Z87.891 Personal history of nicotine dependence; Z88.8 Allergy status to other drugs, medicaments and biological substances; Z88.5 Allergy status to narcotic agent; Z79.899 Other long term (current) drug therapy
CPT/HCPCS: 36415; 70450; 70486; 71100; 72125; 80053; 85025; 99284-25; A9270